=== PATIENT | female | born 1955 | race Caucasian/White ===

== ENCOUNTER 2018-03-13 15:41 | Observation (INO) | payer BC, OTHER ==
[~2018-03-13] VITALS: Ht 160 cm; Wt 76.7 kg
[~2018-03-13 15:41] MED LIST: AMLODIPINE BESYL5 MG PO; ASPIR 8181 MG PO; ATENOLOL-CHLOR1 EACH PO; ATENOLOL100 MG PO; CALCIUM PO; CIPRO500 MG PO; FISH OIL300 MG PO; MULTI-VITAMIN1 EACH PO; OMEPRAZOLE40 MG PO; PROGESTERONE100 MG PO; VITAMIN C100 MG PO; VITAMIN D400 UNI1 PO
[2018-03-13] MEDS ORDERED: MORPHINE SULFATE 2 MG/ML SYR IV STA (16:06)
[2018-03-13] MEDS ORDERED: ONDANSETRON HCL INJ 2 MG/ML VIAL IV STA (16:06)
[2018-03-13 16:23] LABS: BASOPHILS % 0.4 % (0.0-1.0); EOSINOPHILS % 0.7 % (0.0-6.0); HEMATOCRIT 40.3 % (34.2-44.1); LYMPHOCYTES # (AUTO) 0.3 (1.0-3.2); LYMPHOCYTES % 5.4 % (18.0-39.1); MEAN CORPUSCULAR HEMOGLOBIN 31.1 pg (28-32); MEAN CORPUSCULAR HGB CONC 34.7 g/dL (31-35); MEAN CORPUSCULAR VOLUME 89.6 fL (81-99); MONOCYTES % 0.9 % (4.4-11.3); NEUTROPHILS # (AUTO) 4.2 (2.1-6.9); NEUTROPHILS % 91.7 % (38.7-80.0); PLATELET COUNT 180 x10e3/uL (140-360); RED CELL DISTRIBUTION WIDTH 13.5 % (11.7-14.4)
[2018-03-13 16:25] LABS: BILIRUBIN,URINE NEGATIVE (NEGATIVE); CLARITY,URINE SL CLOUDY (CLEAR); COLOR,URINE YELLOW (YELLOW); KETONES,URINE NEGATIVE (NEGATIVE); LEUKOCYTE ESTERASE ,URINE NEGATIVE (NEGATIVE); NITRITE,URINE NEGATIVE (NEGATIVE); PROTEIN,URINE DIPSTICK NEGATIVE (NEGATIVE); URINE UROBILINOGEN 1 mg/dL (0.2 - 1)
[2018-03-13 16:35] LABS: ALANINE AMINOTRANSFERASE 225 IU/L (0-55); ALBUMIN 3.3 g/dL (3.5-5.0); ALBUMIN/GLOBULIN RATIO 0.9 (0.8-2.0); ALKALINE PHOSPHATASE 260 IU/L (40-150); AMYLASE 72 U/L (25-125); ANION GAP 14.2 mmol/L (8-16); BLOOD UREA NITROGEN 12 mg/dL (7-26); BUN/CREATININE RATIO 15 (6-25); CALCIUM 9.3 mg/dL (8.4-10.2); CARBON DIOXIDE 26 mmol/L (22-29); CHLORIDE 104 mmol/L (98-107); CREATININE, SERUM 0.79 mg/dL (0.57-1.11); EST GLOMERULAR FILTRATION RATE > 60 ML/MIN (60-); GLUCOSE 112 mg/dL (74-118); LIPASE 59 U/L (8-78); POTASSIUM 3.2 mmol/L (3.5-5.1); SODIUM 141 mmol/L (136-145)
[2018-03-13 16:36] LABS: EPITHELIAL CELLS,URINE FEW /LPF
--- NOTE | 2018-03-13 19:03 | Diagnostic Imaging Report ---
PROCEDURE: CT ABDOMEN AND PELVIS WITHOUT CONTRAST TECHNIQUE: The abdomen and pelvis were scanned utilizing a multidetector helical scanner from the diaphragm to the lesser trochanter after the oral administration of Redicat. Coronal and sagittal multiplanar reformations were obtained. COMPARISON: 06/21/2016 INDICATIONS: ABDOMINAL PAIN UPPER FINDINGS: ABSENCE OF INTRAVENOUS CONTRAST DECREASES SENSITIVITY FOR DETECTION OF FOCAL LESIONS AND VASCULAR PATHOLOGY. LOWER THORAX: Subsegmental atelectasis and scarlike opacities in the lung bases. HEPATOBILIARY: No focal hepatic lesions. There is pneumobilia, unchanged. The gallbladder is absent. Mild dilatation of the common bile duct, measuring up to 1.2 cm, unchanged. This is most likely due to post cholecystectomy reservoir effect. SPLEEN: No splenomegaly. PANCREAS: No focal masses or ductal dilatation. ADRENALS: No adrenal nodules. KIDNEYS/URETERS: No hydronephrosis, stones, or solid mass lesions. PELVIC ORGANS/BLADDER: A 1.4 cm hypodense structure in the lower uterine segment (series 2, image 35) is unchanged and may represent a nabothian cyst. The bladder is unremarkable. PERITONEUM / RETROPERITONEUM: No free air or fluid. Small, nonspecific calcifications in the right subhepatic space (series 2, image 24) are unchanged since at least 06/21/2016. LYMPH NODES: No lymphadenopathy. VESSELS: Moderate atherosclerotic calcification of the aorta and its branches. GI TRACT: No distention or wall thickening. A 2.6 cm duodenal diverticulum (series 2 image 48) is unchanged. Numerous sigmoid diverticula without evidence of acute diverticulitis. The appendix is normal. The stomach is mildly distended. BONES AND SOFT TISSUES: Multilevel degenerative changes of the lower lumbar spine. IMPRESSION: Status post cholecystectomy with mild biliary dilatation and pneumobilia, unchanged since at least 06/21/2016. Sigmoid diverticulosis without evidence of acute diverticulitis. Dictated by: Gen Barlow M.D. on 03/13/2018 at 19:08 Electronically approved by: Gen Barlow M.D. on 03/13/2018 at 19:08
[2018-03-13] MEDS ORDERED: HYDROMORPHONE 1MG/1ML INJ IV PRN (19:45)
[2018-03-13] MEDS ORDERED: ONDANSETRON HCL INJ 2 MG/ML VIAL IV PRN (19:45)
[2018-03-13 21:15] VITALS: BP 115/54
[2018-03-13] MEDS: D5.45%NS/KCL 20MEQ 1,000 ML IV SCH (22:41)
[2018-03-13 23:20] VITALS: BP 115/54
[2018-03-13 23:32] VITALS: BP 115/54
[2018-03-13] MEDS ORDERED: ESIDRIX25 MG PO (23:50)
[2018-03-13] MEDS ORDERED: VITAMIN D1000 UNI1 PO (23:50)
[2018-03-13] MEDS ORDERED: FISH OIL OMEGA1 EACH PO (23:50)
[2018-03-13] MEDS ORDERED: OYST-CAL-500500 MG PO (23:50)
[2018-03-13] MEDS ORDERED: LOSARTAN POTAS100 MG PO (23:50)
[2018-03-13] MEDS ORDERED: BYSTOLIC10 MG PO (23:50)
[2018-03-14] VITALS (9 sets, daily range): BP systolic 94–132; BP diastolic 50–63
[2018-03-14] MEDS ORDERED: CARAFATE1 GM/10 ML PO (01:12)
[2018-03-14] MEDS: PANTOPRAZOLE 40 MG 10ML VIAL IV SCH ×3 (02:42→20:28)
[2018-03-14 05:56] LABS: BASOPHILS % 0.3 % (0.0-1.0); EOSINOPHILS # (AUTO) 0.1 (0.0-0.4); EOSINOPHILS % 1.5 % (0.0-6.0); HEMATOCRIT 34.3 % (34.2-44.1); HEMOGLOBIN 11.8 g/dL (12.0-16.0); LYMPHOCYTES # (AUTO) 1.2 (1.0-3.2); LYMPHOCYTES % 13.3 % (18.0-39.1); MEAN CORPUSCULAR HGB CONC 34.4 g/dL (31-35); MONOCYTES % 11.1 % (4.4-11.3); NEUTROPHILS # (AUTO) 6.8 (2.1-6.9); NEUTROPHILS % 73.4 % (38.7-80.0); PLATELET COUNT 179 x10e3/uL (140-360); RED BLOOD COUNT 3.81 x10e6/uL (3.6-5.1); RED CELL DISTRIBUTION WIDTH 13.7 % (11.7-14.4)
[2018-03-14 06:16] LABS: ALANINE AMINOTRANSFERASE 211 IU/L (0-55); ALBUMIN 2.7 g/dL (3.5-5.0); ALBUMIN/GLOBULIN RATIO 0.9 (0.8-2.0); ALKALINE PHOSPHATASE 221 IU/L (40-150); ANION GAP 12.6 mmol/L (8-16); BLOOD UREA NITROGEN 8 mg/dL (7-26); BUN/CREATININE RATIO 11 (6-25); CALCIUM 8.4 mg/dL (8.4-10.2); CARBON DIOXIDE 26 mmol/L (22-29); CHLORIDE 106 mmol/L (98-107); CREATININE, SERUM 0.72 mg/dL (0.57-1.11); EST GLOMERULAR FILTRATION RATE > 60 ML/MIN (60-); GLUCOSE 109 mg/dL (74-118); POTASSIUM 3.6 mmol/L (3.5-5.1); SODIUM 141 mmol/L (136-145)
[2018-03-14] MEDS: SUCRALFATE 1 GM/10 ML SUSP PO SCH ×4 (08:02→20:28)
--- NOTE | 2018-03-14 08:12 | History and Physical ---
PRIMARY CARE PHYSICIAN: Dr. Osei NEON SIGN INSTALLER: Dr. Rodney CHIEF COMPLAINT: Abdominal pain. HISTORY OF PRESENT ILLNESS: This is a 62-year-old woman with a history of diverticulosis and cholelithiasis, status post cholecystectomy in 2007, and then recurrence of some findings of stones in June 2016, now developing epigastric pain. Her symptoms were ongoing for 4 days. She also had some chills. No nausea, vomiting or diarrhea. Initial studies showed transaminitis. She is now admitted for further evaluation and management. PAST MEDICAL HISTORY: Hypertension, diverticulosis, obstructive jaundice, cholangitis, choledocholithiasis, status post ERCP with common bile duct stent placement, status post cholecystectomy. PAST SURGICAL HISTORY: Tubal ligation, hernia repair, cholecystectomy, ERCP with common bile duct stent placement. ALLERGIES: PER ELECTRONIC MEDICAL RECORD. FAMILY HISTORY/SOCIAL HISTORY: Patient is . She has 2 children. Occasional alcohol. No illicits or cigarettes. MEDICATIONS: Per electronic medical record. REVIEW OF SYSTEMS: Denies any dizziness, chest pain, shortness of breath, fevers, chills, sweats, headache, vision changes. PHYSICAL EXAMINATION VITAL SIGNS: Reviewed. GENERAL: A tired-appearing woman resting in bed. HEENT: Anicteric. Pupils respond to light. No oral lesions. CARDIOVASCULAR: Normal S1 and S2. LUNGS: Moderate breath sounds. ABDOMEN: Soft and nondistended. She has mild tenderness in the epigastrium. Right upper quadrant is nontender. Negative Gómez's sign. EXTREMITIES: No edema or calf tenderness. NEUROLOGICAL: Alert and oriented times 3. Moving all extremities. SKIN: Dry. PSYCHIATRIC: Normal affect. LABS: Reviewed. MEDICATIONS: Reviewed. ASSESSMENT: This is a 62-year-old woman with: 1. Hypokalemia. 2. Acute transaminitis. 3. Diverticulosis. 4. Hypertension. PLAN 1. MRCP is pending. 2. Continue rehydration. 3. Resume and PPI. 4. Follow up GI recommendations. 5. SCD for DVT prophylaxis and Protonix. Job#: [id number] [place]
[2018-03-14] MEDS: NEBIVOLOL 10 MG TAB PO SCH (09:11)
[2018-03-14] MEDS: D5.45%NS/KCL 20MEQ 1,000 ML IV SCH ×2 (09:11→23:06)
[2018-03-14] MEDS: LOSARTAN POTASSIUM 100 MG TAB PO SCH (09:12)
--- NOTE | 2018-03-14 13:12 | Diagnostic Imaging Report ---
EXAM: MRI MRCP WO DATE: 03/14/2018 9:00 AM INDICATION: Abdominal pain. COMPARISON: CT dated 03/13/2018. MRCP dated 06/21/2016 TECHNIQUE: MRCP protocol performed using1.5 Mis. Sequences obtained include axial T2 FRFSE FS, coronal and axial T2 SSFSE, SSFSE coronal spins. FINDINGS: The gallbladder is surgically absent. The common bile left is distended up to 1.2 cm proximally with gradual distal tapering. There is also mild intrahepatic biliary dilatation. 3 partially obstructive filling defects visualized within distal common bile duct, measuring approximately 0.4 cm, 0.5 cm, and 0.5 cm from proximal to distal (series 11, images 7, 6, and 5). Within the limitations of the exam, the liver, spleen, pancreas, kidneys, and adrenal glands are unremarkable. No pancreatic ductal dilatation. No evidence of bowel obstruction. Colonic diverticulosis. No upper abdominal free fluid or lymphadenopathy. The soft tissues and bones are unremarkable. IMPRESSION: 1. Questionable subcentimeter filling defects within common bile duct, concerning for choledocholithiasis. 2. Status post cholecystectomy with mild biliary dilatation, which could be due to combination of reservoir effect and partially obstructive distal common bile duct stones. Signed by: Dr. Taj Phan MD on 03/14/2018 1:08 PM
[2018-03-15] VITALS (8 sets, daily range): BP systolic 122–172; BP diastolic 59–78
[2018-03-15] MEDS ORDERED: CITRATE OF MAGNESIA 300ML BOTTLE PO ONE (05:00)
[2018-03-15] MEDS: SUCRALFATE 1 GM/10 ML SUSP PO SCH ×4 (07:30→20:25)
[2018-03-15] MEDS: NEBIVOLOL 10 MG TAB PO SCH (09:00)
[2018-03-15] MEDS: LOSARTAN POTASSIUM 100 MG TAB PO SCH (09:00)
[2018-03-15] MEDS: PANTOPRAZOLE 40 MG 10ML VIAL IV SCH ×2 (09:27→20:25)
[2018-03-15] MEDS ORDERED: IOPAMIDOL 300MG/ML 50ML INFUS..BTL IV ONE (11:05)
[2018-03-15] MEDS ORDERED: INDOMETHACIN 50 MG SUPP.RECT RC ONE (11:06)
[2018-03-15] MEDS: D5.45%NS/KCL 20MEQ 1,000 ML IV SCH (11:33)
[2018-03-15] MEDS ORDERED: SODIUM CHLORIDE 0.9% 1000ML 1,000 ML ONE (12:07)
[2018-03-15] MEDS ORDERED: SODIUM CHLORIDE 0.9% 1000ML 1,000 ML IV SCH ×2 (12:30→13:15)
--- NOTE | 2018-03-15 12:39 | Operative Report ---
DATE OF PROCEDURE: March 15, 2018 REFERRING PHYSICIAN: Dr. Yoshi Osei. PROCEDURE PERFORMED: Endoscopic retrograde cholangiopancreatography with endoscopic retrograde sphincterotomy and balloon sweep with stone extraction. INDICATIONS FOR PROCEDURE: Choledocholithiasis on MRCP. MEDICATION: Patient was done under MAC. Please see anesthesiologist's note. PROCEDURE: With the patient in the prone position, the flexible fiberoptic side-viewing Olympus scope was then introduced into the oropharynx and advanced all the way to the 2nd portion of the duodenum. The ampulla was identified and appeared to be within normal limits. There was a periampullary diverticulum. The ampulla was then cannulated with ease, and then a guidewire was inserted. Cholangiogram was carried out with documentation of choledocholithiasis. An endoscopic retrograde sphincterotomy was then carried out to approximately 12 mm, and a balloon sweep times 2 was carried out with retrieval of debris and an approximately 1 cm stone. The scope was subsequently withdrawn. Patient tolerated the procedure well. IMPRESSION: 1. Ampulla within normal limits. 2. Small periampullary diverticulum. 3. Choledocholithiasis on cholangiogram. 4. Endoscopic retrograde sphincterotomy with balloon sweep with removal of debris and approximately 1 cm stone. PLAN: Patient tolerated the procedure well. Will initiate full-liquid diet. Job#: [id number] EV cc:YOSHI OSEI MD
--- NOTE | 2018-03-15 16:03 | Diagnostic Imaging Report ---
PROCEDURE:ERCP TO BE READ TECHNIQUE:Fluoroscopic assistance was provided for the purposes of ERCP. Multiple fluoroscopic images of the biliary tree were submitted. INDICATION:Right upper quadrant pain, suspect choledocholithiasis COMPARISON:Patients [facility], CT, CT ABDOMEN/PELVIS WO, 03/13/2018, 17:51. Patients [facility], DX, ERCP TO BE READ, 06/22/2016, 16:26. ERCP 06/22/2016 FINDINGS: Images demonstrate diffusely distended common bile duct and proximal intrahepatic ducts are previous exam. Surgical clips in the right upper quadrant are stable consistent with cholecystectomy. No beading or narrowing. Balloon sweep was performed with stone extraction. The pancreas duct was not opacified. No stent was placed. CONCLUSION: Chronically distended common bile duct and central intrahepatic ducts with removal of common bile duct stones. No evidence of stricture. Dictated by: Margarito De La Garza M.D. on 03/15/2018 at 16:08 Electronically approved by: Margarito De La Garza M.D. on 03/15/2018 at 16:08
[2018-03-15] MEDS ORDERED: PROPOFOL IV EMULSION 10 MG/ML 50 ML VIAL ONE (17:36)
[2018-03-15] MEDS ORDERED: GLUCAGON FOR INJ 1 MG VIAL ONE (17:36)
[2018-03-15] MEDS ORDERED: LIDOCAINE HCL 2% LOCAL INJ 5 ML SDV VIAL INJ ONE (17:36)
[2018-03-15] MEDS ORDERED: LABETALOL HCL 5 MG/ML 20ML VIAL ONE (17:36)
[2018-03-15] MEDS ORDERED: FENTANYL CITRATE/PF 100MCG/2 ML INJ ONE (18:28)
[2018-03-15] MEDS ORDERED: MIDAZOLAM HCL 2 MG/2 ML VIAL ONE (18:28)
[2018-03-16 00:28] VITALS: BP 131/62
[2018-03-16] MEDS: D5.45%NS/KCL 20MEQ 1,000 ML IV SCH (00:53)
[2018-03-16 05:53] VITALS: BP 145/67
[2018-03-16] MEDS: SUCRALFATE 1 GM/10 ML SUSP PO SCH (07:30)
[2018-03-16 08:07] LABS: BASOPHILS % 0.4 % (0.0-1.0); EOSINOPHILS # (AUTO) 0.1 (0.0-0.4); EOSINOPHILS % 2.2 % (0.0-6.0); HEMOGLOBIN 12.1 g/dL (12.0-16.0); LYMPHOCYTES # (AUTO) 1.1 (1.0-3.2); LYMPHOCYTES % 21.6 % (18.0-39.1); MEAN CORPUSCULAR HEMOGLOBIN 30.4 pg (28-32); MEAN CORPUSCULAR HGB CONC 33.6 g/dL (31-35); MEAN CORPUSCULAR VOLUME 90.5 fL (81-99); MONOCYTES # (AUTO) 0.5 (0.2-0.8); MONOCYTES % 9.3 % (4.4-11.3); NEUTROPHILS # (AUTO) 3.3 (2.1-6.9); NEUTROPHILS % 65.9 % (38.7-80.0); PLATELET COUNT 204 x10e3/uL (140-360); RED BLOOD COUNT 3.98 x10e6/uL (3.6-5.1); RED CELL DISTRIBUTION WIDTH 13.4 % (11.7-14.4)
[2018-03-16] MEDS ORDERED: PANTOPRAZOLE SO40 MG PO (08:25)
[2018-03-16] MEDS ORDERED: ZOFRAN ODT4 MG PO (08:25)
[2018-03-16 08:28] LABS: ANION GAP 9.6 mmol/L (8-16); BLOOD UREA NITROGEN < 5 mg/dL (7-26); CALCIUM 8.5 mg/dL (8.4-10.2); CARBON DIOXIDE 25 mmol/L (22-29); CHLORIDE 108 mmol/L (98-107); CREATININE, SERUM 0.67 mg/dL (0.57-1.11); EST GLOMERULAR FILTRATION RATE > 60 ML/MIN (60-); GLUCOSE 116 mg/dL (74-118); POTASSIUM 3.6 mmol/L (3.5-5.1); SODIUM 139 mmol/L (136-145)
[2018-03-16 08:29] LABS: BUN/CREATININE RATIO 7 (6-25)
[2018-03-16 08:48] VITALS: BP 174/74
[2018-03-16] MEDS: PANTOPRAZOLE 40 MG 10ML VIAL IV SCH (09:00)
[2018-03-16] MEDS: LOSARTAN POTASSIUM 100 MG TAB PO SCH (09:39)
[2018-03-16] MEDS: NEBIVOLOL 10 MG TAB PO SCH (10:19)
[2018-03-16] MEDS ORDERED: PANTOPRAZOLE SOD 40 MG TABEC PO SCH (21:00)
--- NOTE | 2018-03-21 18:39 | Progress Note ---
DATE: March 15, 2018 TIME: 8:00 a.m. SUBJECTIVE: Overnight, no events. REVIEW OF SYSTEMS: Denies any dizziness, chest pain. Denies any headache, blurred vision. OBJECTIVE: VITAL SIGNS: Have been reviewed. GENERAL: A tired-appearing woman, resting in bed. HEENT: Anicteric. CARDIOVASCULAR: Normal S1 and S2. No murmurs. ABDOMEN: Soft, nondistended. Has mild tenderness in the epigastrium. Right upper quadrant is nontender. EXTREMITIES: No edema. SKIN: Dry. PSYCHIATRIC: Normal affect. LABS: Reviewed. MEDICATIONS: Reviewed. ASSESSMENT: This is a 62-year-old woman with: 1. Hypokalemia. 2. Transaminitis. 3. Diverticulosis. 4. Hypertension. 5. Choledocholithiasis by magnetic resonance cholangiopancreatography. PLAN: 1. Obtain LFTs. 2. Follow up hepatitis panel. 3. Follow up GI recommendations. 4. Follow up labs. Job#: [id number] NAIN
--- NOTE | 2018-03-21 20:15 | Discharge Summary ---
PRINCIPAL DIAGNOSES 1. Choledocholithiasis. 2. Hypokalemia. 3. Acute transaminitis. 4. Diverticulosis. 5. Hypertension. SECONDARY DIAGNOSIS: Hypertension. CHIEF COMPLAINT: Abdominal pain. HISTORY OF PRESENT ILLNESS: This is a 62-year-old woman developing abdominal pain. Refer to the H and P for further details. HOSPITAL COURSE: The patient was found to have choledocholithiasis by MRCP. Had elevated LFTs. Hepatitis panel was obtained. GI was consulted. The patient was made n.p.o. and received IV fluids. Hepatitis panel remained negative. The patient improved with IV fluids and conservative management. The patient also underwent ERCP with removal of common bile duct stone. The patient did well. Subsequently, discharged home with plan to follow up. DISCHARGE MEDICATIONS: Per electronic medical record. FOLLOWUP 1. Primary doctor in 1 week. 2. GI services in 2 weeks. CONDITION ON DISCHARGE: Stable and improved. DISCHARGE LOCATION: Home. JOEL REIS MD Job#: [id number] [place]
== END 2018-03-16 11:56 | disposition home or self-care (01) ==
LOC: ER 15:41 → ERHOLD 19:52 → IMCU 21:14
PROVIDERS: ADMIT Internal Medicine; ATTEND Internal Medicine
DX: K80.50 Calculus of bile duct without cholangitis or cholecystitis without obstruction (principal); E87.6 Hypokalemia; K22.70 Barrett's esophagus without dysplasia; I10 Essential (primary) hypertension; Z90.49 Acquired absence of other specified parts of digestive tract; R74.0 Nonspecific elevation of levels of transaminase and lactic acid dehydrogenase [LDH]; K57.10 Diverticulosis of small intestine without perforation or abscess without bleeding; K21.9 Gastro-esophageal reflux disease without esophagitis
CPT/HCPCS: 36415 ×3; 43262; 43264; 74176; 74181; 74328; 80048; 80053 ×2; 81001; 82150; 83690; 85025 ×3; 93005; 99284; G0378 ×4; J1610; J2001; J2250; J2270; J2405; J3490; J7030; Q9967; 43260

== ENCOUNTER 2018-08-15 09:15 | Inpatient (IN) | payer BC, OTHER ==
[~2018-08-15] VITALS: Ht 160 cm; Wt 68.9 kg
[~2018-08-15 09:15] MED LIST changes: +BYSTOLIC10 MG PO; +CARAFATE1 GM/10 ML PO; +ESIDRIX25 MG PO; +FISH OIL OMEGA1 EACH PO; +LOSARTAN POTAS100 MG PO; +OYST-CAL-500500 MG PO; +PANTOPRAZOLE SO40 MG PO; +VITAMIN D1000 UNI1 PO; +ZOFRAN ODT4 MG PO
[2018-08-15] MEDS ORDERED: PANTOPRAZOLE 40 MG 10ML VIAL IV STA (09:51)
[2018-08-15] MEDS ORDERED: SODIUM CHLORIDE 0.9% 1000ML 1,000 ML IV STA (09:51)
[2018-08-15] MEDS ORDERED: MORPHINE SULFATE INJ 4 MG/ML INJ IV NR (09:51)
[2018-08-15] MEDS ORDERED: ONDANSETRON HCL INJ 2 MG/ML VIAL IV NR (10:00)
[2018-08-15 10:23] LABS: BASOPHILS % 0.3 % (0.0-1.0); EOSINOPHILS % 0.1 % (0.0-6.0); HEMATOCRIT 39.2 % (34.2-44.1); HEMOGLOBIN 13.3 g/dL (12.0-16.0); LYMPHOCYTES # (AUTO) 1.2 (1.0-3.2); LYMPHOCYTES % 8.3 % (18.0-39.1); MEAN CORPUSCULAR HEMOGLOBIN 29.9 pg (28-32); MEAN CORPUSCULAR HGB CONC 33.9 g/dL (31-35); MEAN CORPUSCULAR VOLUME 88.1 fL (81-99); MONOCYTES # (AUTO) 1.1 (0.2-0.8); MONOCYTES % 7.9 % (4.4-11.3); NEUTROPHILS # (AUTO) 11.6 (2.1-6.9); PLATELET COUNT 378 x10e3/uL (140-360); RED BLOOD COUNT 4.45 x10e6/uL (3.6-5.1); RED CELL DISTRIBUTION WIDTH 13.2 % (11.7-14.4)
[2018-08-15 10:41] LABS: ALANINE AMINOTRANSFERASE 14 IU/L (0-55); ALBUMIN 2.9 g/dL (3.5-5.0); ALBUMIN/GLOBULIN RATIO 0.6 (0.8-2.0); ALKALINE PHOSPHATASE 94 IU/L (40-150); AMYLASE 48 U/L (25-125); ANION GAP 15.3 mmol/L (8-16); BLOOD UREA NITROGEN 9 mg/dL (7-26); BUN/CREATININE RATIO 12 (6-25); CALCIUM 9.4 mg/dL (8.4-10.2); CARBON DIOXIDE 25 mmol/L (22-29); CHLORIDE 100 mmol/L (98-107); CREATININE, SERUM 0.78 mg/dL (0.57-1.11); EST GLOMERULAR FILTRATION RATE > 60 ML/MIN (60-); GLUCOSE 113 mg/dL (74-118); LIPASE 21 U/L (8-78); POTASSIUM 3.3 mmol/L (3.5-5.1); SODIUM 137 mmol/L (136-145)
[2018-08-15 11:05] LABS: CLARITY,URINE CLOUDY (CLEAR); COLOR,URINE YELLOW (YELLOW)
[2018-08-15 11:06] LABS: KETONES,URINE 1+ (NEGATIVE); LEUKOCYTE ESTERASE ,URINE NEGATIVE (NEGATIVE); NITRITE,URINE NEGATIVE (NEGATIVE); PROTEIN,URINE DIPSTICK 1+ (NEGATIVE)
[2018-08-15 11:07] LABS: BILIRUBIN,URINE NEGATIVE (NEGATIVE); URINE UROBILINOGEN 0.2 mg/dL (0.2 - 1)
[2018-08-15 11:19] LABS: EPITHELIAL CELLS,URINE MANY /LPF
[2018-08-15 11:20] LABS: WBC,URINE (MAN) 0-5 /HPF (0-5)
[2018-08-15 11:21] LABS: BACTERIA,URINE MODERATE /HPF; RBC,URINE 0-5 /HPF (0-5)
--- NOTE | 2018-08-15 12:00 | NUR ---
PATIENT LAYING IN BED WITH EYES CLOSED. SKIN WARM AND DRY. RESP EVEN AND UNLABORED. NO SIGNS OF ACUTE DISTRESS NOTED AT THIS TIME. FAMILY AT BEDSIDE.
[2018-08-15] MEDS ORDERED: D5.45%NS/KCL 20MEQ 1,000 ML IV SCH (12:50)
[2018-08-15] MEDS ORDERED: MORPHINE SULFATE 2 MG/ML SYR IV PRN (13:00)
[2018-08-15] MEDS: POTASSIUM CHLORIDE 20 MEQ TAB CR PO NR ×2 (13:25→13:31)
[2018-08-15] MEDS: PIPER-TAZ 3.375 GM 50 ML IV SCH ×2 (13:36→20:39)
--- NOTE | 2018-08-15 14:13 | Diagnostic Imaging Report ---
ADDENDUM #1 ADDENDUM: Dose modulation, iterative reconstruction, and/or weight based adjustment of the mA/kV was utilized to reduce the radiation dose to as low as reasonably achievable. Signed by: Dr. Clarice Mckeon MD on 08/15/2018 5:24 PM ORIGINAL REPORT EXAM: CT Abdomen and Pelvis WITHOUT contrast INDICATION: Abdominal pain, history of diverticulitis. COMPARISON: CT abdomen pelvis 06/21/2016. TECHNIQUE: Abdomen and pelvis were scanned utilizing a multidetector helical scanner from the lung base to the pubic symphysis without administration of IV contrast. Absence of intravenous contrast decreases sensitivity for detection of focal lesions and vascular pathology. Coronal and sagittal reformations were obtained. Routine protocol was performed. IV CONTRAST: None. ORAL CONTRAST: Water RADIATION DOSE: Total DLP: 691.7 mGy*cm COMPLICATIONS: None FINDINGS: LOWER THORAX: No consolidations LIVER: No evidence of mass BILIARY: Again noted is pneumobilia, increased from prior CT on 06/21/2016. Mild intrahepatic and CBD dilatation, likely secondary to reservoir effect status post cholecystectomy. SPLEEN: No masses PANCREAS: Limited evaluation in the absence of contrast. No masses ADRENALS: No nodules KIDNEYS: No nephroureterolithiasis or hydronephrosis. GI TRACT: There is extensive colonic diverticulosis with substantial sigmoid colonic thickening measuring up to 1.8 cm and perisigmoid colonic inflammatory changes with fat stranding and some free fluid in the pelvis. No drainable fluid collection. Normal appendix. No evidence of bowel obstruction. VESSELS: Moderate atherosclerotic changes without aneurysm. PERITONEUM/RETROPERITONEUM: No free air or fluid LYMPH NODES: No lymphadenopathy PELVIS: The bladder is unremarkable in appearance. There is free fluid surrounding the uterus adjacent to the sigmoid diverticulitis. BONES/SOFT TISSUES: No suspicious bone lesions. IMPRESSION: Acute sigmoid diverticulitis with extensive surrounding inflammatory changes. Some free fluid in the pelvis without evidence of drainable abscess. Given the substantial sigmoid colonic wall thickening, upon resolution of acute symptoms, colonoscopy is suggested to exclude underlying neoplasm. Nonspecific pneumobilia, increased from CT on 06/21/16. Please correlate with prior intervention or surgical procedure. Signed by: Dr. Clarice Mckeon MD on 08/15/2018 2:10 PM
[2018-08-15] MEDS: METRONIDAZOLE 500MG/NS 100ML 100 ML IV SCH ×2 (14:45→18:36)
[2018-08-15] MEDS: MORPHINE SULFATE INJ 4 MG/ML INJ IV PRN ×2 (14:57→18:36)
[2018-08-15] MEDS: ONDANSETRON HCL INJ 2 MG/ML VIAL IV PRN (14:59)
[2018-08-15] MEDS ORDERED: LABETALOL HCL 5 MG/ML 20ML VIAL IV SCH (16:15)
--- NOTE | 2018-08-15 16:35 | History and Physical ---
PRIMARY CARE PHYSICIAN: Dr. Osei. EXTERNAL AUDITOR: Dr. Rodney. CHIEF COMPLAINT: Abdominal pain and nausea. HISTORY OF PRESENT ILLNESS: This is a 63-year-old woman with a history of diverticulosis, now developing severe lower abdominal pain along the low abdominal border with nausea prompting a visit to the hospital. Here she was found to have acute sigmoid diverticulitis with extensive disease and was admitted for further evaluation and management. PAST MEDICAL HISTORY: Diverticulosis, hypertension, objective jaundice, cholangitis, choledocholithiasis status post ERCP with common bile duct stent placement status post cholecystectomy, hypokalemia, acute transaminitis. PAST SURGICAL HISTORY: Tubal ligation, hernia repair, cholecystectomy, ERCP with common bile duct stent placement. ALLERGIES: PER THE ELECTRONIC MEDICAL RECORDS. FAMILY HISTORY/SOCIAL HISTORY: Patient is . She has 2 children. Occasional alcohol, no cigarettes or illicits. MEDICATIONS: Per the electronic medical records. Medications reviewed. REVIEW OF SYSTEMS: Denies any fever, chills, sweats. Denies any headache, chest pain, leg pain, skin rash, confusion. LABS: Reviewed. ASSESSMENT: This is a 63-year-old woman. 1. Acute sigmoid diverticulitis. 2. Hypertension. 3. Abdominal pain. 4. Hypokalemia. 5. Overweight state, body mass index 29.9. PLAN 1. NPO. 2. IV Flagyl and Zosyn. 3. IV fluids. 4. PRN morphine. 5. SCDs for DVT prophylaxis and IV Pepcid. 6. Disposition. I have counseled patient on weight loss and a high-fiber diet once she is discharged. GI consultation. Follow up labs. Job#: [id number] EV
[2018-08-15 18:12] VITALS: BP 146/63
--- NOTE | 2018-08-15 18:15 | NUR ---
received pt lying in bed with eyes open and TV on, resp even and unlabored. AAOx3. spouse at bedside. oriented to room and use of call light, call light placed within reach and instructed to call for assistance. patient c/o pain 10/10 to lower abdomen upon initial assessment, administered PRN morphine per OCT.
[2018-08-15] MEDS: SODIUM CHLORIDE 0.9% 1000ML 1,000 ML IV SCH (18:36)
[2018-08-15] MEDS: FAMOTIDINE 20 MG/2 ML VIAL IV SCH (18:36)
[2018-08-15 18:45] VITALS: BP 146/63
[2018-08-15 18:48] VITALS: BP 146/63
--- NOTE | 2018-08-15 19:34 | NUR ---
walking rounds done with oncoming nurse. IV Zosyn has not been administered as patient was recently transferred to unit, passed this on in report to oncoming nurse.
[2018-08-15 20:00] VITALS: BP 128/58
[2018-08-15] MEDS ORDERED: ACETAMINOPHEN 325 MG TAB PO PRN (20:15)
--- NOTE | 2018-08-15 20:20 | NUR ---
RECEIVED PT IN BED AOX3 .RESPIRATIONS ARE EVEN AND UNLABORED .DENIES PAIN AT THIS TIME ,T 101.[address] REIS AND GOT THE ORDER TO BLOOD CULTURE X2 AND TYLENOL 650 MG Q 6HRS PRN .CALL LIGHT WITH IN REACH .FAMILY ERIK RTO THE BEDSIDE CONTINUE TO MONITOR N
[2018-08-15] MEDS ORDERED: LABETALOL HCL 5 MG/ML 20ML VIAL IV PRN (20:30)
[2018-08-15] MEDS: ACETAMINOPHEN 325 MG TAB PO PRN (20:30)
[2018-08-15] MEDS ORDERED: LABETALOL HCL 20 MG/4 ML SYRINGE IV PRN (20:30)
[2018-08-16] VITALS (9 sets, daily range): BP systolic 108–144; BP diastolic 53–71
[2018-08-16] MEDS: MORPHINE SULFATE INJ 4 MG/ML INJ IV PRN ×2 (03:40→15:44)
[2018-08-16] MEDS: ONDANSETRON HCL INJ 2 MG/ML VIAL IV PRN ×2 (03:40→19:31)
[2018-08-16 05:36] LABS: BASOPHILS % 0.2 % (0.0-1.0); EOSINOPHILS # (AUTO) 0.1 (0.0-0.4); EOSINOPHILS % 0.5 % (0.0-6.0); HEMATOCRIT 33.9 % (34.2-44.1); HEMOGLOBIN 11.3 g/dL (12.0-16.0); LYMPHOCYTES # (AUTO) 0.8 (1.0-3.2); LYMPHOCYTES % 6.2 % (18.0-39.1); MEAN CORPUSCULAR HEMOGLOBIN 29.6 pg (28-32); MEAN CORPUSCULAR HGB CONC 33.3 g/dL (31-35); MEAN CORPUSCULAR VOLUME 88.7 fL (81-99); MONOCYTES # (AUTO) 1.1 (0.2-0.8); MONOCYTES % 8.3 % (4.4-11.3); NEUTROPHILS # (AUTO) 11.5 (2.1-6.9); NEUTROPHILS % 84.3 % (38.7-80.0); PLATELET COUNT 288 x10e3/uL (140-360); RED BLOOD COUNT 3.82 x10e6/uL (3.6-5.1); RED CELL DISTRIBUTION WIDTH 13.4 % (11.7-14.4)
[2018-08-16] MEDS: SODIUM CHLORIDE 0.9% 1000ML 1,000 ML IV SCH (05:39)
[2018-08-16] MEDS: ACETAMINOPHEN 325 MG TAB PO PRN ×2 (05:39→15:56)
[2018-08-16] MEDS: METRONIDAZOLE 500MG/NS 100ML 100 ML IV SCH ×4 (05:56→17:40)
[2018-08-16 05:58] LABS: ALANINE AMINOTRANSFERASE 17 IU/L (0-55); ALBUMIN 2.2 g/dL (3.5-5.0); ALBUMIN/GLOBULIN RATIO 0.6 (0.8-2.0); ALKALINE PHOSPHATASE 91 IU/L (40-150); ANION GAP 11.4 mmol/L (8-16); BLOOD UREA NITROGEN 6 mg/dL (7-26); BUN/CREATININE RATIO 9 (6-25); CARBON DIOXIDE 23 mmol/L (22-29); CHLORIDE 103 mmol/L (98-107); CREATININE, SERUM 0.69 mg/dL (0.57-1.11); EST GLOMERULAR FILTRATION RATE > 60 ML/MIN (60-); GLUCOSE 105 mg/dL (74-118); POTASSIUM 3.4 mmol/L (3.5-5.1); SODIUM 134 mmol/L (136-145)
[2018-08-16] MEDS: PIPER-TAZ 3.375 GM 50 ML IV SCH ×5 (06:13→23:56)
--- NOTE | 2018-08-16 06:24 | NUR ---
DR ARMAS HAVE SEEN THE PT .PT HAD TEM GIVEN TYLENOL 650 .CONTINUE TO MONITOR .FAMILY AT THE BEDSIDE .CALL LIGHT WITH IN REACH
[2018-08-16] MEDS ORDERED: ASPIR 8181 MG PO (06:59)
--- NOTE | 2018-08-16 07:18 | NUR ---
REPORT GIVEN TO THE ONCOMING NURSE.
[2018-08-16] MEDS ORDERED: POTASSIUM CHLORIDE 20MEQ/100ML 100 ML IV STA (07:31)
--- NOTE | 2018-08-16 07:31 | NUR ---
IM: progress note O/N: no events REVIEW OF SYSTEMS: Denies any fever, chills, sweats. Denies any headache, chest pain, leg pain, skin rash, confusion. LABS: Reviewed. ASSESSMENT: This is a 63-year-old woman. 1. Acute sigmoid diverticulitis. 2. Hypertension. 3. Abdominal pain. 4. Hypokalemia. 5. Overweight state, body mass index 29.9. PLAN 1. NPO. 2. IV Flagyl and Zosyn. 3. IV fluids. 4. PRN morphine. 5. SCDs for DVT prophylaxis and IV Pepcid. 6. Disposition. I have counseled patient on weight loss and a high-fiber diet once she is discharged. GI consultation. Follow up labs. /3 hypokalemia- replace; starting diet per GI. Francois Rubio MD, PhD.
[2018-08-16] MEDS: FAMOTIDINE 20 MG/2 ML VIAL IV SCH ×2 (08:39→17:12)
--- NOTE | 2018-08-16 15:40 | NUR ---
rechecked temperature its 100.1 orally
[2018-08-16] MEDS: PANTOPRAZOLE SOD 40 MG TABEC PO SCH (16:30)
[2018-08-16] MEDS: SUCRALFATE 1 GM/10 ML SUSP PO SCH ×2 (16:30→21:30)
[2018-08-16] MEDS ORDERED: ASPIRIN 81 MG CHEW TAB PO PRN (16:30)
[2018-08-16] MEDS ORDERED: ONDANSETRON HCL 4 MG ORAL DISINTEGRATING TAB PO PRN (16:30)
--- NOTE | 2018-08-16 19:10 | NUR ---
Completed BS rounds with morning nurse. Pt alert to name. Sitting in recliner. Denies pain at this time. No acute distress noted. at bedside.
[2018-08-17] VITALS (8 sets, daily range): BP systolic 115–162; BP diastolic 58–72
[2018-08-17] MEDS: MORPHINE SULFATE INJ 4 MG/ML INJ IV PRN ×4 (00:35→17:21)
[2018-08-17] MEDS: ONDANSETRON HCL INJ 2 MG/ML VIAL IV PRN ×4 (00:35→17:22)
[2018-08-17] MEDS: METRONIDAZOLE 500MG/NS 100ML 100 ML IV SCH ×4 (00:57→17:21)
[2018-08-17 05:07] LABS: BASOPHILS % 0.3 % (0.0-1.0); EOSINOPHILS % 0.3 % (0.0-6.0); HEMATOCRIT 32.1 % (34.2-44.1); HEMOGLOBIN 10.8 g/dL (12.0-16.0); LYMPHOCYTES # (AUTO) 0.9 (1.0-3.2); MEAN CORPUSCULAR HEMOGLOBIN 29.6 pg (28-32); MEAN CORPUSCULAR HGB CONC 33.6 g/dL (31-35); MEAN CORPUSCULAR VOLUME 87.9 fL (81-99); MONOCYTES # (AUTO) 0.9 (0.2-0.8); NEUTROPHILS # (AUTO) 11.5 (2.1-6.9); NEUTROPHILS % 84.8 % (38.7-80.0); PLATELET COUNT 305 x10e3/uL (140-360); RED BLOOD COUNT 3.65 x10e6/uL (3.6-5.1)
[2018-08-17 05:43] LABS: ANION GAP 11.6 mmol/L (8-16); BLOOD UREA NITROGEN 7 mg/dL (7-26); BUN/CREATININE RATIO 11 (6-25); CALCIUM 8.1 mg/dL (8.4-10.2); CARBON DIOXIDE 23 mmol/L (22-29); CHLORIDE 106 mmol/L (98-107); CREATININE, SERUM 0.66 mg/dL (0.57-1.11); EST GLOMERULAR FILTRATION RATE > 60 ML/MIN (60-); GLUCOSE 99 mg/dL (74-118); POTASSIUM 3.6 mmol/L (3.5-5.1); SODIUM 137 mmol/L (136-145)
[2018-08-17] MEDS: PIPER-TAZ 3.375 GM 50 ML IV SCH ×3 (06:00→17:21)
--- NOTE | 2018-08-17 08:09 | NUR ---
ADDENDUM to Progress Note 08/16/18 PE: tired appearing anicteric ns1s2 mod bs soft; tender lower abdomen no e/t skin dry n. affect Francois Rubio MD, PhD.
--- NOTE | 2018-08-17 08:10 | NUR ---
IM: progress note O/N: no events REVIEW OF SYSTEMS: Denies any fever, chills, sweats. Denies any headache, chest pain, leg pain, skin rash, confusion. v/S: rev'd PE tired appeairng anicteric ns1s2 mod bs soft Tender lower abdomen skin dry no e/t extremities a&ox3; andrade n. mood LABS: Reviewed. ASSESSMENT: This is a 63-year-old woman. 1. Acute sigmoid diverticulitis. 2. Hypertension. 3. Abdominal pain. 4. Hypokalemia. 5. Overweight state, body mass index 29.9. PLAN 1. NPO. 2. IV Flagyl and Zosyn. 3. IV fluids. 4. PRN morphine. 5. SCDs for DVT prophylaxis and IV Pepcid. 6. Disposition. I have counseled patient on weight loss and a high-fiber diet once she is discharged. GI consultation. Follow up labs. 08/16 hypokalemia- replace; starting diet per GI. 08/17 improving; Francois Rubio MD, PhD.
--- NOTE | 2018-08-17 08:59 | NUR ---
LATE ENTRY: 06/16/2019 CASE MANAGEMENT INITIAL ASSESSMENT Outreach Analyst to bedside to discuss plan of care with patient/family. CM/SW role and care transitions discussed. Anticipated discharge plan discussed along with duration of care. CM/SW discussed patients right to make decisions in care. CM/SW work hours given. Patient lives: W IN HOME Admit/Transfer: ER W C/O LOWER ABD PAIN POA/Emergency contact: RICHARD / SPOUSE @ [phone] Current/Previous Home Health: NONE PCP/Follow-up Care: DR. 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 CM/SW left business card at the bedside with contact information. Name and number was also written on the patients whiteboard. Patient verbalized understanding of discussion. CM will follow-up with ongoing discharge and transition of care needs.
[2018-08-17] MEDS: PROGESTERONE PO SCH (09:00)
[2018-08-17] MEDS: MULTIVITAMINS/MINERALS TAB PO SCH (09:00)
[2018-08-17] MEDS: OYST-CAL-D 500MG TABLET PO SCH (09:00)
[2018-08-17] MEDS: NEBIVOLOL 10 MG TAB PO SCH (09:00)
[2018-08-17] MEDS: CHOLECALCIFEROL 1,000 UNIT TAB PO SCH (09:00)
[2018-08-17] MEDS: LOSARTAN POTASSIUM 100 MG TAB PO SCH (09:00)
[2018-08-17] MEDS: OMEGA 3 POLYUNSAT FATTY ACIDS 1000 MG SOFTGEL PO SCH ×2 (09:00→17:00)
[2018-08-17] MEDS: SODIUM CHLORIDE 0.9% 1000ML 1,000 ML IV SCH (09:26)
[2018-08-17] MEDS: PANTOPRAZOLE SOD 40 MG TABEC PO SCH ×2 (09:27→16:30)
[2018-08-17] MEDS: SUCRALFATE 1 GM/10 ML SUSP PO SCH ×4 (09:27→21:00)
[2018-08-17] MEDS: FAMOTIDINE 20 MG/2 ML VIAL IV SCH ×2 (09:27→17:21)
--- NOTE | 2018-08-17 09:30 | NUR ---
Pt received resting in bed. Alert and oriented x4 pt c/o nausea, and unable to tolerate oral meds. Emotional support given. Oriented to staff and surroundings. Encouraged to press call [facility] if help needed. Call [facility] within reach. Will monitor
--- NOTE | 2018-08-17 19:05 | NUR ---
Completed BS rounds with morning nurse. Pt alert to name. Sitting up in bed. Denies pain or nausea at this time. No acute distress noted.
[2018-08-18] VITALS (7 sets, daily range): BP systolic 137–172; BP diastolic 61–72
[2018-08-18] MEDS: ONDANSETRON HCL INJ 2 MG/ML VIAL IV PRN ×4 (00:31→21:48)
[2018-08-18] MEDS: METRONIDAZOLE 500MG/NS 100ML 100 ML IV SCH ×4 (00:31→17:22)
[2018-08-18] MEDS: MORPHINE SULFATE INJ 4 MG/ML INJ IV PRN ×4 (00:32→21:48)
[2018-08-18] MEDS: PIPER-TAZ 3.375 GM 50 ML IV SCH ×4 (01:00→17:22)
[2018-08-18] MEDS: PANTOPRAZOLE SOD 40 MG TABEC PO SCH ×2 (07:30→16:27)
[2018-08-18 07:35] LABS: BASOPHILS % 0.3 % (0.0-1.0); EOSINOPHILS # (AUTO) 0.1 (0.0-0.4); EOSINOPHILS % 0.6 % (0.0-6.0); HEMATOCRIT 31.6 % (34.2-44.1); HEMOGLOBIN 10.7 g/dL (12.0-16.0); LYMPHOCYTES # (AUTO) 0.9 (1.0-3.2); LYMPHOCYTES % 6.7 % (18.0-39.1); MEAN CORPUSCULAR HEMOGLOBIN 29.8 pg (28-32); MEAN CORPUSCULAR HGB CONC 33.9 g/dL (31-35); MONOCYTES # (AUTO) 1.2 (0.2-0.8); NEUTROPHILS # (AUTO) 10.6 (2.1-6.9); NEUTROPHILS % 82.4 % (38.7-80.0); PLATELET COUNT 310 x10e3/uL (140-360); RED BLOOD COUNT 3.59 x10e6/uL (3.6-5.1); RED CELL DISTRIBUTION WIDTH 13.2 % (11.7-14.4)
[2018-08-18 08:14] LABS: ANION GAP 12.3 mmol/L (8-16); BLOOD UREA NITROGEN 7 mg/dL (7-26); BUN/CREATININE RATIO 10 (6-25); CALCIUM 8.1 mg/dL (8.4-10.2); CARBON DIOXIDE 23 mmol/L (22-29); CHLORIDE 103 mmol/L (98-107); CREATININE, SERUM 0.69 mg/dL (0.57-1.11); EST GLOMERULAR FILTRATION RATE > 60 ML/MIN (60-); GLUCOSE 88 mg/dL (74-118); MAGNESIUM 1.8 MG/DL (1.3-2.1); POTASSIUM 3.3 mmol/L (3.5-5.1); SODIUM 135 mmol/L (136-145)
--- NOTE | 2018-08-18 08:48 | NUR ---
Pt received resting in bed. Pt able to tolerate breakfast today. Will advance lunch. All meds given as ordered. Will monitor
[2018-08-18] MEDS: PROGESTERONE PO SCH (08:52)
[2018-08-18] MEDS: NEBIVOLOL 10 MG TAB PO SCH (08:52)
[2018-08-18] MEDS: LOSARTAN POTASSIUM 100 MG TAB PO SCH (08:52)
[2018-08-18] MEDS: OYST-CAL-D 500MG TABLET PO SCH (08:57)
[2018-08-18] MEDS: FAMOTIDINE 20 MG/2 ML VIAL IV SCH ×2 (08:57→17:22)
[2018-08-18] MEDS: MULTIVITAMINS/MINERALS TAB PO SCH (08:57)
[2018-08-18] MEDS: CHOLECALCIFEROL 1,000 UNIT TAB PO SCH (08:57)
[2018-08-18] MEDS: OMEGA 3 POLYUNSAT FATTY ACIDS 1000 MG SOFTGEL PO SCH ×2 (08:57→16:28)
[2018-08-18] MEDS: SUCRALFATE 1 GM/10 ML SUSP PO SCH ×4 (08:57→20:44)
--- NOTE | 2018-08-18 10:58 | NUR ---
IM: progress note O/N: no events REVIEW OF SYSTEMS: Denies any fever, chills, sweats. Denies any headache, chest pain, leg pain, skin rash, confusion. v/S: rev'd PE tired appeairng anicteric ns1s2 mod bs soft Tender lower abdomen skin dry no e/t extremities a&ox3; andrade n. mood LABS: Reviewed. ASSESSMENT: This is a 63-year-old woman. 1. Acute sigmoid diverticulitis. 2. Hypertension. 3. Abdominal pain. 4. Hypokalemia. 5. Overweight state, body mass index 29.9. PLAN 1. NPO. 2. IV Flagyl and Zosyn. 3. IV fluids. 4. PRN morphine. 5. SCDs for DVT prophylaxis and IV Pepcid. 6. Disposition. I have counseled patient on weight loss and a high-fiber diet once she is discharged. GI consultation. Follow up labs. 08/16 hypokalemia- replace; starting diet per GI. 08/17 improving; 08/18 replace K; tolerating full liq diet. Francois Rubio MD, PhD.
[2018-08-18] MEDS ORDERED: POTASSIUM CHLORIDE 20 MEQ TAB CR PO ONE (11:30)
[2018-08-18] MEDS ORDERED: POTASSIUM CHLORIDE 10MEQ EA PO ONE (12:30)
[2018-08-18] MEDS: SODIUM CHLORIDE 0.9% 1000ML 1,000 ML IV SCH ×2 (12:37→23:55)
--- NOTE | 2018-08-18 18:35 | NUR ---
Pt resting comfortably in bed. Tolerated full liquid diet. Meds given as ordered. Will endorse to next shift
--- NOTE | 2018-08-18 19:41 | NUR ---
Received patient alert and verbal. No complaint of pain.
[2018-08-19] VITALS (8 sets, daily range): BP systolic 136–173; BP diastolic 64–77
[2018-08-19] MEDS: METRONIDAZOLE 500MG/NS 100ML 100 ML IV SCH ×5 (00:05→23:50)
[2018-08-19] MEDS: PIPER-TAZ 3.375 GM 50 ML IV SCH ×4 (00:54→16:51)
[2018-08-19] MEDS: MORPHINE SULFATE INJ 4 MG/ML INJ IV PRN ×3 (05:10→14:15)
[2018-08-19] MEDS: ONDANSETRON HCL INJ 2 MG/ML VIAL IV PRN ×3 (05:10→14:15)
[2018-08-19 05:38] LABS: BASOPHILS % 0.4 % (0.0-1.0); EOSINOPHILS # (AUTO) 0.1 (0.0-0.4); EOSINOPHILS % 0.6 % (0.0-6.0); HEMATOCRIT 32.3 % (34.2-44.1); HEMOGLOBIN 10.9 g/dL (12.0-16.0); LYMPHOCYTES % 8.8 % (18.0-39.1); MEAN CORPUSCULAR HEMOGLOBIN 29.6 pg (28-32); MEAN CORPUSCULAR HGB CONC 33.7 g/dL (31-35); MEAN CORPUSCULAR VOLUME 87.8 fL (81-99); MONOCYTES % 8.9 % (4.4-11.3); NEUTROPHILS % 80.7 % (38.7-80.0); PLATELET COUNT 317 x10e3/uL (140-360); RED BLOOD COUNT 3.68 x10e6/uL (3.6-5.1); RED CELL DISTRIBUTION WIDTH 13.3 % (11.7-14.4)
[2018-08-19 06:05] LABS: ANION GAP 12.6 mmol/L (8-16); BLOOD UREA NITROGEN 5 mg/dL (7-26); BUN/CREATININE RATIO 8 (6-25); CALCIUM 8.1 mg/dL (8.4-10.2); CARBON DIOXIDE 24 mmol/L (22-29); CHLORIDE 100 mmol/L (98-107); CREATININE, SERUM 0.66 mg/dL (0.57-1.11); EST GLOMERULAR FILTRATION RATE > 60 ML/MIN (60-); GLUCOSE 99 mg/dL (74-118); POTASSIUM 3.6 mmol/L (3.5-5.1); SODIUM 133 mmol/L (136-145)
--- NOTE | 2018-08-19 06:48 | NUR ---
Report given to oncoming nurse
[2018-08-19] MEDS: PANTOPRAZOLE SOD 40 MG TABEC PO SCH (07:30)
[2018-08-19] MEDS: OMEGA 3 POLYUNSAT FATTY ACIDS 1000 MG SOFTGEL PO SCH (08:04)
[2018-08-19] MEDS: PROGESTERONE PO SCH (08:04)
--- NOTE | 2018-08-19 08:08 | NUR ---
Pt received resting in bed. Alert and oriented x4. All meds given as ordered. Emotional support given. Will monitor
[2018-08-19] MEDS: NEBIVOLOL 10 MG TAB PO SCH (08:09)
[2018-08-19] MEDS: OYST-CAL-D 500MG TABLET PO SCH (08:09)
[2018-08-19] MEDS: LOSARTAN POTASSIUM 100 MG TAB PO SCH (08:09)
[2018-08-19] MEDS: CHOLECALCIFEROL 1,000 UNIT TAB PO SCH (08:09)
[2018-08-19] MEDS: FAMOTIDINE 20 MG/2 ML VIAL IV SCH ×2 (08:09→16:50)
[2018-08-19] MEDS: SUCRALFATE 1 GM/10 ML SUSP PO SCH ×4 (08:09→20:50)
[2018-08-19] MEDS: MULTIVITAMINS/MINERALS TAB PO SCH (08:09)
--- NOTE | 2018-08-19 08:18 | NUR ---
Pt received resting in bed with family at bedside. Right IJ TLC at bedside is patent. Alert and oriented x4. All meds given as ordered. Emotional support given. Will monitor Addendum: 08/19/18 at 1034 by Juvenal Caldwell RN Noted entered in ERROR
--- NOTE | 2018-08-19 09:56 | NUR ---
IM: progress note O/N: no events REVIEW OF SYSTEMS: Denies any fever, chills, sweats. Denies any headache, chest pain, leg pain, skin rash, confusion. v/S: rev'd PE tired appeairng anicteric ns1s2 mod bs soft Tender lower abdomen skin dry no e/t extremities a&ox3; andrade n. mood LABS: Reviewed. ASSESSMENT: This is a 63-year-old woman. 1. Acute sigmoid diverticulitis. 2. Hypertension. 3. Abdominal pain. 4. Hypokalemia. 5. Overweight state, body mass index 29.9. PLAN 1. NPO. 2. IV Flagyl and Zosyn. 3. IV fluids. 4. PRN morphine. 5. SCDs for DVT prophylaxis and IV Pepcid. 6. Disposition. I have counseled patient on weight loss and a high-fiber diet once she is discharged. GI consultation. Follow up labs. 08/16 hypokalemia- replace; starting diet per GI. 08/17 improving; 08/18 replace K; tolerating full liq diet. 08/22 control BP; on liq diet; some abdominal discomfort; Francois Rubio MD, PhD.
[2018-08-19] MEDS ORDERED: NEBIVOLOL 10 MG TAB PO ONE (10:30)
[2018-08-19] MEDS: SODIUM CHLORIDE 0.9% 1000ML 1,000 ML IV SCH (11:07)
--- NOTE | 2018-08-19 19:19 | NUR ---
Report received from day shift nurse. Patient is alert. No complaints at this time.
[2018-08-20] VITALS (9 sets, daily range): BP systolic 133–185; BP diastolic 67–81
[2018-08-20] MEDS: PIPER-TAZ 3.375 GM 50 ML IV SCH ×4 (01:02→17:27)
[2018-08-20] MEDS: ONDANSETRON HCL INJ 2 MG/ML VIAL IV PRN ×3 (04:08→17:04)
[2018-08-20] MEDS: MORPHINE SULFATE INJ 4 MG/ML INJ IV PRN ×4 (04:08→23:49)
[2018-08-20] MEDS: SODIUM CHLORIDE 0.9% 1000ML 1,000 ML IV SCH (04:38)
[2018-08-20] MEDS: METRONIDAZOLE 500MG/NS 100ML 100 ML IV SCH ×4 (05:10→23:27)
[2018-08-20 05:12] LABS: BASOPHILS % 0.3 % (0.0-1.0); EOSINOPHILS # (AUTO) 0.1 (0.0-0.4); EOSINOPHILS % 0.7 % (0.0-6.0); HEMATOCRIT 30.3 % (34.2-44.1); HEMOGLOBIN 10.2 g/dL (12.0-16.0); LYMPHOCYTES # (AUTO) 0.8 (1.0-3.2); LYMPHOCYTES % 7.4 % (18.0-39.1); MEAN CORPUSCULAR HEMOGLOBIN 29.1 pg (28-32); MEAN CORPUSCULAR HGB CONC 33.7 g/dL (31-35); MEAN CORPUSCULAR VOLUME 86.3 fL (81-99); MONOCYTES % 9.8 % (4.4-11.3); NEUTROPHILS # (AUTO) 8.2 (2.1-6.9); NEUTROPHILS % 81.1 % (38.7-80.0); PLATELET COUNT 298 x10e3/uL (140-360); RED BLOOD COUNT 3.51 x10e6/uL (3.6-5.1); RED CELL DISTRIBUTION WIDTH 13.4 % (11.7-14.4)
[2018-08-20 05:33] LABS: ANION GAP 9.9 mmol/L (8-16); BLOOD UREA NITROGEN < 5 mg/dL (7-26); CALCIUM 7.9 mg/dL (8.4-10.2); CARBON DIOXIDE 27 mmol/L (22-29); CHLORIDE 103 mmol/L (98-107); CREATININE, SERUM 0.61 mg/dL (0.57-1.11); EST GLOMERULAR FILTRATION RATE > 60 ML/MIN (60-); GLUCOSE 103 mg/dL (74-118); SODIUM 137 mmol/L (136-145)
[2018-08-20 05:42] LABS: BUN/CREATININE RATIO 8 (6-25)
[2018-08-20 05:43] LABS: POTASSIUM 2.9 mmol/L (3.5-5.1)
--- NOTE | 2018-08-20 05:59 | NUR ---
Blood Pressure rechecked and within normal 134/62 mmhg.
--- NOTE | 2018-08-20 06:24 | NUR ---
Dr Rubio notified of low Potassium level. Orders received.
[2018-08-20] MEDS ORDERED: POTASSIUM CHLORIDE 20 MEQ TAB CR PO ONE ×2 (06:45→21:00)
--- NOTE | 2018-08-20 07:27 | NUR ---
report given to oncoming nurse.
--- NOTE | 2018-08-20 07:30 | NUR ---
RECEIVED PATIENT SITTING UP IN BED. NO ACUTE DISTRESS NOTED. CALL LIGHT WITHIN REACH. BED IN THE LOWEST POSITION.
[2018-08-20] MEDS: NEBIVOLOL 10 MG TAB PO SCH (08:44)
[2018-08-20] MEDS: SUCRALFATE 1 GM/10 ML SUSP PO SCH ×4 (08:44→21:00)
[2018-08-20] MEDS: FAMOTIDINE 20 MG/2 ML VIAL IV SCH ×2 (08:44→16:53)
[2018-08-20] MEDS: OYST-CAL-D 500MG TABLET PO SCH (08:45)
[2018-08-20] MEDS: LOSARTAN POTASSIUM 100 MG TAB PO SCH ×2 (08:45→09:00)
[2018-08-20] MEDS: MULTIVITAMINS/MINERALS TAB PO SCH (08:45)
[2018-08-20] MEDS: CHOLECALCIFEROL 1,000 UNIT TAB PO SCH (08:45)
[2018-08-20] MEDS: PROGESTERONE PO SCH (08:45)
--- NOTE | 2018-08-20 09:39 | NUR ---
IM: progress note O/N: no events REVIEW OF SYSTEMS: Denies any fever, chills, sweats. Denies any headache, chest pain, leg pain, skin rash, confusion. v/S: rev'd PE tired appeairng anicteric ns1s2 mod bs soft Tender lower abdomen skin dry no e/t extremities a&ox3; andrade n. mood LABS: Reviewed. ASSESSMENT: This is a 63-year-old woman. 1. Acute sigmoid diverticulitis. 2. Hypertension. 3. Abdominal pain. 4. Hypokalemia. 5. Overweight state, body mass index 29.9. PLAN 1. NPO. 2. IV Flagyl and Zosyn. 3. IV fluids. 4. PRN morphine. 5. SCDs for DVT prophylaxis and IV Pepcid. 6. Disposition. I have counseled patient on weight loss and a high-fiber diet once she is discharged. GI consultation. Follow up labs. 08/16 hypokalemia- replace; starting diet per GI. 08/17 improving; 08/18 replace K; tolerating full liq diet. 08/19 control BP; on liq diet; some abdominal discomfort; 08/20 control BP; cont diet advancement; replace and recheck K; Francois Rubio MD, PhD.
[2018-08-20] MEDS: NIFEDIPINE CR 30 MG TAB PO SCH ×2 (09:45→21:00)
--- NOTE | 2018-08-20 13:50 | NUR ---
PATIENT HAS BEEN APPROVED TO BE TRANSFERRED TO [facility]. REPORT GIVEN TO RYAN PARNELL AT [facility]. Addendum: 08/20/18 at 1547 by MP MOREAU RN WRONG ENTRY.
[2018-08-20] MEDS ORDERED: POTASSIUM CHLORIDE 20 MEQ TAB CR PO STA (14:30)
--- NOTE | 2018-08-20 19:30 | NUR ---
REPORT GIVEN TO ONCOMING NURSE. PATIENT IS RESTING IN BED. NO ACUTE DISTRESS NOTED. PAIN AT A TOLERABLE LEVEL AT THIS TIME. CALL LIGHT WITHIN REACH. BED IN THE LOWEST POSITION.
--- NOTE | 2018-08-20 20:00 | NUR ---
INITIAL ASSESSMENT COMPLETE, CALL LIGHT IN REACH,FAMILY AT BEDSIDE, C/O PAIN TO ABD, IV INFUSING, NO DISTRESS NOTED, TOLD TO CALL FOR NEEDS
--- NOTE | 2018-08-20 22:28 | Diagnostic Imaging Report ---
EXAM: CT Abdomen and Pelvis WITHOUT contrast INDICATION: Diverticulitis. Abdominal pain. COMPARISON: CT abdomen pelvis dated 08/15/2018. TECHNIQUE: Abdomen and pelvis were scanned utilizing a multidetector helical scanner from the lung base to the pubic symphysis without administration of IV contrast. Absence of intravenous contrast decreases sensitivity for detection of focal lesions and vascular pathology. Coronal and sagittal reformations were obtained. Routine protocol was performed. IV CONTRAST: None. ORAL CONTRAST: Gastrografin water mixture RADIATION DOSE: Total DLP: 530.60 mGy*cm COMPLICATIONS: None FINDINGS: LOWER THORAX: Bibasilar subsegmental atelectasis. Bilateral trace volume pleural effusion. LIVER: No evidence of mass BILIARY: Mild pneumobilia again observed. Mild intrahepatic and CBD dilatation, likely secondary to reservoir effect status post cholecystectomy. SPLEEN: No masses. PANCREAS: No acute abnormality. No dilatation. ADRENALS: No nodules KIDNEYS: No nephroureterolithiasis or hydronephrosis. GI TRACT: Redemonstration of acute sigmoid diverticulitis, with marked luminal narrowing of the sigmoid colon as seen on axial images 61 series 2, associated with extensive phlegmonous changes and a small volume of free fluid without associated loculated fluid collection at this time. There is a small collection of air and oral contrast extending anteriorly from the sigmoid colon measuring 3 cm on image 67 series 2, consistent with a contained leak. There is also a focal collection of oral contrast extending from the inferior aspect of the inflamed sigmoid colon as seen on axial image 67 and 68 series 2. There appears to be an appendiceal stump. No evidence of bowel obstruction. VESSELS: Moderate atherosclerotic calcifications without aneurysmal dilatation. PERITONEUM/RETROPERITONEUM: Small volume of free fluid. Containing leakage abutting the sigmoid colon as detailed above. LYMPH NODES: No lymphadenopathy PELVIS: Free fluid within the pelvis. BONES/SOFT TISSUES: No suspicious bone lesions. Degenerative disc disease at L3-L4, L4-L5 and L5-S1. IMPRESSION: 1. Redemonstration of acute sigmoid diverticulitis with extensive phlegmonous changes, and a small volume of free fluid. 2 small focal collections of oral contrast and air adjacent to the inflamed sigmoid colon, consistent with focal areas of contained rupture/leakage as detailed above, without a loculated fluid collection suggestive of drainable abscess. No distant pneumoperitoneum. Signed by: Dr. Carolee Stiles M.D. on 08/20/2018 10:25 PM
[2018-08-21] VITALS (7 sets, daily range): BP systolic 122–174; BP diastolic 58–84
[2018-08-21] MEDS: PIPER-TAZ 3.375 GM 50 ML IV SCH ×4 (00:30→17:40)
[2018-08-21] MEDS: METRONIDAZOLE 500MG/NS 100ML 100 ML IV SCH ×3 (05:37→18:18)
[2018-08-21 05:55] LABS: ANION GAP 11.6 mmol/L (8-16); BLOOD UREA NITROGEN < 5 mg/dL (7-26); CALCIUM 8.2 mg/dL (8.4-10.2); CARBON DIOXIDE 27 mmol/L (22-29); CHLORIDE 103 mmol/L (98-107); CREATININE, SERUM 0.62 mg/dL (0.57-1.11); EST GLOMERULAR FILTRATION RATE > 60 ML/MIN (60-); GLUCOSE 92 mg/dL (74-118); POTASSIUM 3.6 mmol/L (3.5-5.1); SODIUM 138 mmol/L (136-145)
[2018-08-21 05:58] LABS: BUN/CREATININE RATIO 8 (6-25)
--- NOTE | 2018-08-21 06:22 | NUR ---
pt in bed, family at bedside, vs stable, call light in reach, no distress noted
--- NOTE | 2018-08-21 06:25 | NUR ---
IM: progress note O/N: no events REVIEW OF SYSTEMS: Denies any fever, chills, sweats. Denies any headache, chest pain, leg pain, skin rash, confusion. v/S: rev'd PE tired appeairng anicteric ns1s2 mod bs soft Tender lower abdomen skin dry no e/t extremities a&ox3; andrade n. mood LABS: Reviewed. ASSESSMENT: This is a 63-year-old woman. 1. Acute sigmoid diverticulitis. 2. Hypertension. 3. Abdominal pain. 4. Hypokalemia. 5. Overweight state, body mass index 29.9. PLAN 1. NPO. 2. IV Flagyl and Zosyn. 3. IV fluids. 4. PRN morphine. 5. SCDs for DVT prophylaxis and IV Pepcid. 6. Disposition. I have counseled patient on weight loss and a high-fiber diet once she is discharged. GI consultation. Follow up labs. 08/16 hypokalemia- replace; starting diet per GI. 08/17 improving; 08/18 replace K; tolerating full liq diet. 08/19 control BP; on liq diet; some abdominal discomfort; 08/20 control BP; cont diet advancement; replace and recheck K; 08/21 CT no abscess; possible colonic wall rupture; extensive disease; Francois Rubio MD, PhD.
--- NOTE | 2018-08-21 07:14 | NUR ---
RECEIVED PATIENT SITTING UP IN COUCH. NO S/S DISTRESS NOTED. DENIES PAIN OR DISCOMFORT. CALL LIGHT WITHIN REACH. BED IN THE LOWEST POSITION.
[2018-08-21] MEDS: SUCRALFATE 1 GM/10 ML SUSP PO SCH ×4 (08:27→21:00)
[2018-08-21] MEDS: FAMOTIDINE 20 MG/2 ML VIAL IV SCH ×2 (08:32→16:49)
[2018-08-21] MEDS: OYST-CAL-D 500MG TABLET PO SCH (08:32)
[2018-08-21] MEDS: MULTIVITAMINS/MINERALS TAB PO SCH (08:32)
[2018-08-21] MEDS: CHOLECALCIFEROL 1,000 UNIT TAB PO SCH (08:32)
[2018-08-21] MEDS: PROGESTERONE PO SCH (08:32)
[2018-08-21] MEDS: NEBIVOLOL 10 MG TAB PO SCH (08:33)
[2018-08-21] MEDS: LOSARTAN POTASSIUM 100 MG TAB PO SCH (08:33)
[2018-08-21] MEDS: NIFEDIPINE CR 30 MG TAB PO SCH ×2 (08:33→21:00)
[2018-08-21] MEDS: MORPHINE SULFATE INJ 4 MG/ML INJ IV PRN ×2 (09:54→18:40)
[2018-08-21] MEDS: ONDANSETRON HCL INJ 2 MG/ML VIAL IV PRN ×2 (09:54→18:40)
[2018-08-21] MEDS: SODIUM CHLORIDE 0.9% 1000ML 1,000 ML IV SCH (17:40)
--- NOTE | 2018-08-21 18:11 | NUR ---
Nutrition Intervention Note RD Recommendation(s) for Physician: -Advance to GI soft diet as medically appropriate -Consider Ensure Compact w each meal to promote protein-calorie intake -Consider probiotics to promote gut health Plan of Care: RD following, monitoring for tolerance and adequacy Nutrition reason for involvement: LOS, NPO/clear/full liquid day 6 RD Assessment 08/21 Chart reviewed. 63yo F, who is admitted for nausea and abdominal pain. Visited pt in the room. Pt reports tolerating full liquid diet. Pt still complains of some abdominal pain but denies any nausea or vomiting today. LBM 08/21, watery per pt. CT abdomen/pelvis showed acute sigmoid diverticulitis with extensive phlegmonous changes, and a small volume of free fluid. Pending surgeon consult. 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 Bedside scale showed ~155lb, which is consistent with her reported UBW. No physical sign of muscle and fat loss. Will continue to monitor and follow. Principal Problems/Diagnoses: 1. Acute sigmoid diverticulitis. 2. Hypertension. 3. Abdominal pain. 4. Hypokalemia. 5. Overweight state, body mass index 29.9. PMH: Diverticulosis, hypertension, objective jaundice, cholangitis, choledocholithiasis status post ERCP with common bile duct stent placement status post cholecystectomy, hypokalemia, acute transaminitis. GI: LBM 08/21, watery stool per pt Skin: intact Labs: (08/21) BUN <5 L, Ca 8.2 L Meds: IVF, carafate, pepcid, zofran, oscal D, MVi w/ minerals, vitamin D 3 Ht: 63in Wt: 164.56lb BMI: 29.2kg/m2 IBW: 115lb Malnutrition Evaluation (08/21/2018) The patient does not meet criteria for a specified degree of malnutrition at this time. Will re-evaluate at follow-up as appropriate. Energy intake: <75% of estimated energy requirements for >7 days Weight loss: None Fat loss: none Muscle loss: none Supporting Evidence: Fluid accumulation: unable to evaluate Functional Status: no changes Nutrition Prescription (Diet Order): full liquid diet Diet Adequacy: Not meeting calorie needs, Not meeting protein needs Diet Education Needs Assessment: Diet education not indicated, patient on temporary/transition diet. Nutrition Care Level: low Nutrition Diagnosis: Inadequate oral intake related to current medical status as evidenced by full liquid diet on day 6. Goal: Patient will meet 75-100% of estimated needs by follow up Progress: N/A Interventions: Texture-modified diet, Commercial beverage Monitoring/Evaluation: Total energy intake, Total protein intake, Modified diet, Liquid supplement, Weight change Signed: Elizabeth Barry MS, RD, LD
--- NOTE | 2018-08-21 19:33 | NUR ---
REPORT GIVEN TO ONCOMING NURSE. PATIENT IS RESTING IN COUCH. NO S/S OF DISTRESS NOTED. FAMILY AT BEDSIDE. CALL LIGHT WITHIN REACH.
--- NOTE | 2018-08-21 22:34 | Consultation ---
DATE OF CONSULTATION: August 21, 2018 CHIEF COMPLAINT: Abdominal pain. HISTORY OF PRESENT ILLNESS: The patient is a 63-year-old female admitted a week ago with severe lower abdominal pain associated with diverticulitis of the sigmoid colon. The patient has had similar infection approximately 6 years ago. The patient was having loose bowel movements, tolerating liquid diet, but the pain has persisted. Repeat CT scan today shows small amount of extravasations from the sigmoid diverticulitis consistent with localized perforation. PAST MEDICAL HISTORY: As mentioned, positive for hypertension, history of cholangitis status post bile duct exploration and cholecystectomy. OTHER SURGICAL HISTORY: Includes hernia repair. SOCIAL: She does not smoke or abuse alcohol. REVIEW OF SYSTEMS: No chest pain, no shortness of breath or cough. ALLERGIES: SHE HAS ALLERGIC REACTION TO IODINE AND CODEINE. PHYSICAL EXAMINATION VITAL SIGNS: Stable. She is afebrile. Patient is awake, alert, in moderate discomfort. HEENT: Sclerae anicteric. NECK: Supple. LUNGS: Clear. HEART: Regular rate and rhythm. ABDOMEN: Moderately distended with guarding in the lower abdomen in the suprapubic area with mild rebound. EXTREMITIES: Without cyanosis or edema. LABS: White cell count is 10, hemoglobin of 10. Creatinine is 0.6. CT of the abdomen reveals sigmoid diverticulitis with small collection of air and oral contrast adjacent to the colon consistent with focal perforation. ASSESSMENT: Acute sigmoid diverticular perforations with localized evolving abscess formation. PLAN: Continue current antibiotics and clear liquid diet as tolerated. As there is no drainable abscess on last CT, we will continue antibiotics. If the acute infectious process worsens or does not improve, patient may benefit from sigmoid resection with possible colostomy. Thank you for the consultation. Job#: [id number] CF
[2018-08-22] VITALS (7 sets, daily range): BP systolic 123–143; BP diastolic 59–68
[2018-08-22] MEDS: ONDANSETRON HCL INJ 2 MG/ML VIAL IV PRN
[2018-08-22] MEDS: MORPHINE SULFATE INJ 4 MG/ML INJ IV PRN
[2018-08-22] MEDS: METRONIDAZOLE 500MG/NS 100ML 100 ML IV SCH ×3 (00:35→12:00)
[2018-08-22 05:20] LABS: BASOPHILS % 0.4 % (0.0-1.0); EOSINOPHILS # (AUTO) 0.2 (0.0-0.4); EOSINOPHILS % 3.2 % (0.0-6.0); HEMATOCRIT 30.9 % (34.2-44.1); HEMOGLOBIN 10.4 g/dL (12.0-16.0); MEAN CORPUSCULAR HEMOGLOBIN 29.2 pg (28-32); MEAN CORPUSCULAR HGB CONC 33.7 g/dL (31-35); MEAN CORPUSCULAR VOLUME 86.8 fL (81-99); MONOCYTES # (AUTO) 0.9 (0.2-0.8); MONOCYTES % 12.8 % (4.4-11.3); NEUTROPHILS % 68.6 % (38.7-80.0); PLATELET COUNT 317 x10e3/uL (140-360); RED BLOOD COUNT 3.56 x10e6/uL (3.6-5.1); RED CELL DISTRIBUTION WIDTH 13.8 % (11.7-14.4)
[2018-08-22 05:45] LABS: ALANINE AMINOTRANSFERASE 8 IU/L (0-55); ALBUMIN/GLOBULIN RATIO 0.6 (0.8-2.0); ALKALINE PHOSPHATASE 54 IU/L (40-150); ANION GAP 11.2 mmol/L (8-16); BLOOD UREA NITROGEN < 5 mg/dL (7-26); CALCIUM 8.1 mg/dL (8.4-10.2); CARBON DIOXIDE 28 mmol/L (22-29); CHLORIDE 101 mmol/L (98-107); CREATININE, SERUM 0.62 mg/dL (0.57-1.11); EST GLOMERULAR FILTRATION RATE > 60 ML/MIN (60-); GLUCOSE 93 mg/dL (74-118); POTASSIUM 3.2 mmol/L (3.5-5.1); SODIUM 137 mmol/L (136-145)
[2018-08-22] MEDS: PIPER-TAZ 3.375 GM 50 ML IV SCH ×3 (05:45→12:00)
[2018-08-22 05:51] LABS: BUN/CREATININE RATIO 8 (6-25)
--- NOTE | 2018-08-22 06:28 | NUR ---
IM: progress note O/N: no events REVIEW OF SYSTEMS: Denies any fever, chills, sweats. Denies any headache, chest pain, leg pain, skin rash, confusion. v/S: rev'd PE tired appeairng anicteric ns1s2 mod bs soft Tender lower abdomen skin dry no e/t extremities a&ox3; andrade n. mood LABS: Reviewed. ASSESSMENT: This is a 63-year-old woman. 1. Acute sigmoid diverticulitis. 2. Hypertension. 3. Abdominal pain. 4. Hypokalemia. 5. Overweight state, body mass index 29.9. PLAN 1. NPO. 2. IV Flagyl and Zosyn. 3. IV fluids. 4. PRN morphine. 5. SCDs for DVT prophylaxis and IV Pepcid. 6. Disposition. I have counseled patient on weight loss and a high-fiber diet once she is discharged. GI consultation. Follow up labs. 08/16 hypokalemia- replace; starting diet per GI. 08/17 improving; 08/18 replace K; tolerating full liq diet. 08/19 control BP; on liq diet; some abdominal discomfort; 08/20 control BP; cont diet advancement; replace and recheck K; 08/21 CT no abscess; possible colonic wall rupture; extensive disease; 08/22 leukocytosis resolved; replace K; cont conservative care; await clinical improvement; Francois Rubio MD, PhD.
[2018-08-22] MEDS ORDERED: POTASSIUM CHLORIDE 20MEQ/100ML 100 ML IV ONE (06:45)
[2018-08-22] MEDS: PROGESTERONE PO SCH (09:00)
[2018-08-22] MEDS: SUCRALFATE 1 GM/10 ML SUSP PO SCH ×4 (09:08→21:11)
[2018-08-22] MEDS: FAMOTIDINE 20 MG/2 ML VIAL IV SCH ×2 (09:08→18:03)
[2018-08-22] MEDS: NEBIVOLOL 10 MG TAB PO SCH (09:09)
[2018-08-22] MEDS: LOSARTAN POTASSIUM 100 MG TAB PO SCH (09:09)
[2018-08-22] MEDS: NIFEDIPINE CR 30 MG TAB PO SCH ×2 (09:10→21:11)
[2018-08-22] MEDS: CHOLECALCIFEROL 1,000 UNIT TAB PO SCH (09:10)
[2018-08-22] MEDS: MULTIVITAMINS/MINERALS TAB PO SCH (09:10)
[2018-08-22] MEDS: OYST-CAL-D 500MG TABLET PO SCH (09:10)
[2018-08-22] MEDS: SODIUM CHLORIDE 0.9% 1000ML 1,000 ML IV SCH (10:28)
--- NOTE | 2018-08-22 13:00 | NUR ---
Called in CT scan results to Dr. Forrest and received no new orders.
--- NOTE | 2018-08-22 19:05 | NUR ---
Completed bedside rounds with morning nurse. Pt alert,going to bathroom. Steady gait. Denies pain at this time. No acute distress noted. Family at bedside.
[2018-08-23] VITALS (7 sets, daily range): BP systolic 133–149; BP diastolic 63–82
[2018-08-23] MEDS: MULTIVITAMINS/MINERALS TAB PO SCH (08:00)
[2018-08-23] MEDS: CHOLECALCIFEROL 1,000 UNIT TAB PO SCH (08:00)
[2018-08-23] MEDS: NIFEDIPINE CR 30 MG TAB PO SCH ×2 (08:00→21:45)
[2018-08-23] MEDS: NEBIVOLOL 10 MG TAB PO SCH (08:00)
[2018-08-23] MEDS: OYST-CAL-D 500MG TABLET PO SCH (08:00)
[2018-08-23] MEDS: SUCRALFATE 1 GM/10 ML SUSP PO SCH ×4 (08:00→21:45)
[2018-08-23] MEDS: FAMOTIDINE 20 MG/2 ML VIAL IV SCH ×3 (08:00→17:28)
[2018-08-23] MEDS: PROGESTERONE PO SCH (09:00)
[2018-08-23] MEDS: LOSARTAN POTASSIUM 100 MG TAB PO SCH (13:34)
--- NOTE | 2018-08-23 19:15 | NUR ---
Completed bedside rounds with morning nurse. Pt alert and orient sitting in bed. Denies pain at this time. No acute distress noted. Call crawford within reach.
--- NOTE | 2018-08-23 19:45 | NUR ---
Left hand IV swollen and nonpatent. D/C IV 20g left hand, pt tolerated well.
--- NOTE | 2018-08-23 19:47 | NUR ---
IM: progress note O/N: no events REVIEW OF SYSTEMS: Denies any fever, chills, sweats. Denies any headache, chest pain, leg pain, skin rash, confusion. v/S: rev'd PE tired appeairng anicteric ns1s2 mod bs soft Tender lower abdomen skin dry no e/t extremities a&ox3; andrade n. mood LABS: Reviewed. ASSESSMENT: This is a 63-year-old woman. 1. Acute sigmoid diverticulitis. 2. Hypertension. 3. Abdominal pain. 4. Hypokalemia. 5. Overweight state, body mass index 29.9. PLAN 1. NPO. 2. IV Flagyl and Zosyn. 3. IV fluids. 4. PRN morphine. 5. SCDs for DVT prophylaxis and IV Pepcid. 6. Disposition. I have counseled patient on weight loss and a high-fiber diet once she is discharged. GI consultation. Follow up labs. 08/16 hypokalemia- replace; starting diet per GI. 08/17 improving; 08/18 replace K; tolerating full liq diet. 08/19 control BP; on liq diet; some abdominal discomfort; 08/20 control BP; cont diet advancement; replace and recheck K; 08/21 CT no abscess; possible colonic wall rupture; extensive disease; 08/22 leukocytosis resolved; replace K; cont conservative care; await clinical improvement; 08/23 tolerating diet; check labs in am. wants to go home soon. Francois Rubio MD, PhD.
--- NOTE | 2018-08-23 20:00 | NUR ---
Spoke with Dr. Steven regarding medications. New orders Abx: Flagyl 500mg PO Q 8 hrs and change Protonix 20 mg PO Q 12 hrs.
[2018-08-23] MEDS: METRONIDAZOLE 500 MG TAB PO SCH (21:45)
[2018-08-24] VITALS: BP 150/83
[2018-08-24 04:00] VITALS: BP 130/70
[2018-08-24 05:27] LABS: BASOPHILS % 0.6 % (0.0-1.0); EOSINOPHILS # (AUTO) 0.2 (0.0-0.4); EOSINOPHILS % 3.2 % (0.0-6.0); HEMATOCRIT 34.7 % (34.2-44.1); HEMOGLOBIN 11.8 g/dL (12.0-16.0); LYMPHOCYTES # (AUTO) 1.6 (1.0-3.2); LYMPHOCYTES % 22.1 % (18.0-39.1); MEAN CORPUSCULAR HEMOGLOBIN 29.8 pg (28-32); MEAN CORPUSCULAR VOLUME 87.6 fL (81-99); MONOCYTES # (AUTO) 0.9 (0.2-0.8); MONOCYTES % 11.8 % (4.4-11.3); NEUTROPHILS # (AUTO) 4.4 (2.1-6.9); NEUTROPHILS % 61.3 % (38.7-80.0); PLATELET COUNT 364 x10e3/uL (140-360); RED BLOOD COUNT 3.96 x10e6/uL (3.6-5.1); RED CELL DISTRIBUTION WIDTH 13.9 % (11.7-14.4)
[2018-08-24 05:48] LABS: ANION GAP 12.4 mmol/L (8-16); BLOOD UREA NITROGEN 6 mg/dL (7-26); BUN/CREATININE RATIO 9 (6-25); CALCIUM 8.4 mg/dL (8.4-10.2); CARBON DIOXIDE 27 mmol/L (22-29); CHLORIDE 106 mmol/L (98-107); CREATININE, SERUM 0.67 mg/dL (0.57-1.11); EST GLOMERULAR FILTRATION RATE > 60 ML/MIN (60-); GLUCOSE 90 mg/dL (74-118); POTASSIUM 3.4 mmol/L (3.5-5.1); SODIUM 142 mmol/L (136-145)
[2018-08-24] MEDS ORDERED: FLAGYL500 MG PO (06:44)
[2018-08-24] MEDS ORDERED: NIFEDIPINE ER30 M1 PO (06:44)
[2018-08-24] MEDS ORDERED: MIRALAX17 GM PO (06:44)
[2018-08-24] MEDS ORDERED: BYSTOLIC10 MG PO (06:44)
[2018-08-24] MEDS ORDERED: ZOFRAN4 MG PO (06:44)
--- NOTE | 2018-08-24 06:47 | NUR ---
Discharge Summary Principal Dx: ASSESSMENT: This is a 63-year-old woman. 1. Acute sigmoid diverticulitis. 2. Hypertension. 3. Abdominal pain. 4. Hypokalemia. 5. Overweight state, body mass index 29.9. Secondary dx: 1.HTN cc and HPI; refer to H&P Hospital course: ASSESSMENT: This is a 63-year-old woman. 1. Acute sigmoid diverticulitis. 2. Hypertension. 3. Abdominal pain. 4. Hypokalemia. 5. Overweight state, body mass index 29.9. PLAN 1. NPO. 2. IV Flagyl and Zosyn. 3. IV fluids. 4. PRN morphine. 5. SCDs for DVT prophylaxis and IV Pepcid. 6. Disposition. I have counseled patient on weight loss and a high-fiber diet once she is discharged. GI consultation. Follow up labs. 08/16 hypokalemia- replace; starting diet per GI. 08/17 improving; 08/18 replace K; tolerating full liq diet. 08/19 control BP; on liq diet; some abdominal discomfort; 08/20 control BP; cont diet advancement; replace and recheck K; 08/21 CT no abscess; possible colonic wall rupture; extensive disease; 08/22 leukocytosis resolved; replace K; cont conservative care; await clinical improvement; 08/23 tolerating diet; check labs in am. wants to go home soon. d/c home d/c condition: stable f/u pcp and and [facility] in 1-2 weeks Plan for colonoscopy in 6-8 weeks d/c meds; see MAR d/c time>35mins. Francois Rubio MD, PhD.
[2018-08-24 06:57] LABS: ANISOCYTOSIS SLIGHT; EOSINOPHILS % (MANUAL) 4 % (0-7); LYMPHOCYTES % (MANUAL) 16 % (19-48); MONOCYTES % (MANUAL) 11 % (3.4-9.0); MYELOCYTES % (MANUAL) 1 % (0-0); NEUTROPHILS % (MANUAL) 64 % (40-74); PLATELET ESTIMATE ADEQUATE; PLATELET MORPHOLOGY COMMENT NORMAL; RBC MORPHOLOGY COMMENT NORMAL
[2018-08-24 07:25] VITALS: BP 134/60
--- NOTE | 2018-08-24 07:25 | NUR ---
PATIENT OUT OF BED TO CHAIR TALKING ON THE PHONE, DENIED PAIN. CALL LIGHT AT REACH.
[2018-08-24] MEDS ORDERED: POTASSIUM CHLORIDE 20 MEQ TAB CR PO NR (07:30)
[2018-08-24] MEDS: METRONIDAZOLE 500 MG TAB PO SCH (07:32)
[2018-08-24 07:39] VITALS: BP 134/60
[2018-08-24] MEDS: SUCRALFATE 1 GM/10 ML SUSP PO SCH (08:00)
[2018-08-24] MEDS: PROGESTERONE PO SCH (09:00)
[2018-08-24] MEDS ORDERED: FAMOTIDINE 20 MG TAB PO SCH (09:00)
[2018-08-24] MEDS: OYST-CAL-D 500MG TABLET PO SCH (09:26)
[2018-08-24] MEDS: CHOLECALCIFEROL 1,000 UNIT TAB PO SCH (09:26)
[2018-08-24] MEDS: LOSARTAN POTASSIUM 100 MG TAB PO SCH (09:26)
[2018-08-24] MEDS: NIFEDIPINE CR 30 MG TAB PO SCH (09:26)
[2018-08-24] MEDS: NEBIVOLOL 10 MG TAB PO SCH (09:26)
[2018-08-24] MEDS: MULTIVITAMINS/MINERALS TAB PO SCH (09:26)
--- NOTE | 2018-08-24 10:50 | NUR ---
PATIENT DISCHARGED HOME. DISCHARGE INSTRUCTIONS, PRESCRIPTIONS, AND FOLLOW UP GIVEN TO PATIENT, SHE VERBALIZED UNDERSTANDING. ALL PERSONAL ITEMS TAKEN WITH PATIENT. REFUSED WHEEL CHAIR, BUT WAS ACCOMPANY TO THE FRONT LOBBY BY HOSPITAL STAFF IN STABLE CONDITION.
== END 2018-08-24 10:44 | disposition home or self-care (01) | DRG 392 ==
LOC: ER 09:15 → ERHOLD 14:29 → MED/SURG3 17:41
PROVIDERS: ADMIT Internal Medicine; ATTEND Internal Medicine
DX: K57.20 Diverticulitis of large intestine with perforation and abscess without bleeding (principal); I10 Essential (primary) hypertension; E87.6 Hypokalemia; E66.3 Overweight; Z68.29 Body mass index [BMI] 29.0-29.9, adult; R10.9 Unspecified abdominal pain
CPT/HCPCS: 36415; 74176; 80048; 80053; 81001; 82150; 83605; 83690; 83735; 84132; 85025; 87040; 87086; 96361; 99284; J2270; J2405; J2543; J3480; J7030

== ENCOUNTER 2018-09-17 07:14 | Inpatient (IN) | payer BC, OTHER ==
[2018-09-14 08:37] LABS: BASOPHILS % 0.7 % (0.0-1.0); EOSINOPHILS # (AUTO) 0.2 (0.0-0.4); EOSINOPHILS % 3.5 % (0.0-6.0); HEMATOCRIT 39.8 % (34.2-44.1); HEMOGLOBIN 13.2 g/dL (12.0-16.0); LYMPHOCYTES # (AUTO) 1.3 (1.0-3.2); LYMPHOCYTES % 29.6 % (18.0-39.1); MEAN CORPUSCULAR HEMOGLOBIN 29.2 pg (28-32); MEAN CORPUSCULAR HGB CONC 33.2 g/dL (31-35); MEAN CORPUSCULAR VOLUME 88.1 fL (81-99); MONOCYTES # (AUTO) 0.5 (0.2-0.8); MONOCYTES % 10.6 % (4.4-11.3); NEUTROPHILS # (AUTO) 2.4 (2.1-6.9); NEUTROPHILS % 55.4 % (38.7-80.0); PLATELET COUNT 234 x10e3/uL (140-360); RED BLOOD COUNT 4.52 x10e6/uL (3.6-5.1); RED CELL DISTRIBUTION WIDTH 14.9 % (11.7-14.4)
[~2018-09-17] VITALS: Ht 160 cm; Wt 68.9 kg
[~2018-09-17 07:14] MED LIST changes: +ESTRADIOL1 MG PO; +FLAGYL500 MG PO; +MIRALAX17 GM PO; +NIFEDIPINE ER30 M1 PO; +POTASSIUM CHLO20 ME1 PO; +PROGESTERONE200 MG PO; +ZOFRAN4 MG PO
[2018-09-17] MEDS ORDERED: CEFOXITIN SOD 1 GM VIAL ONE (07:45)
[2018-09-17] MEDS ORDERED: BUPIVACAINE 0.5%/EPI 30 ML SDV INJ ONE (09:03)
[2018-09-17] MEDS ORDERED: MEPERIDINE HCL INJ 25 MG/ML VIAL ONE (13:30)
[2018-09-17] MEDS ORDERED: PIPER-TAZ 3.375 GM 50 ML IV SCH (14:00)
[2018-09-17] MEDS ORDERED: FENTANYL CITRATE/PF 100MCG/2 ML INJ ONE ×2 (15:22→17:53)
[2018-09-17] MEDS ORDERED: MIDAZOLAM HCL 2 MG/2 ML VIAL ONE (17:53)
[2018-09-17] MEDS ORDERED: PROPOFOL IV EMULSION 10 MG/ML 20 ML VIAL ONE (18:00)
[2018-09-17] MEDS ORDERED: ONDANSETRON HCL INJ 2MG/ML 2ML 2 MG/ML VIAL ONE (18:00)
[2018-09-17] MEDS ORDERED: DEXAMETHASONE SOD PHOS INJ 4 MG/ML VIAL ONE (18:00)
[2018-09-17] MEDS ORDERED: KETOROLAC TROMETHAMINE 30 MG/ML VIAL ONE (18:00)
[2018-09-17] MEDS ORDERED: GLYCOPYRROLATE INJ 1MG/ 5 ML SYR ONE (18:00)
[2018-09-17] MEDS ORDERED: SEVOFLURANE INHAL SOLN 250 ML PEN BTL ONE (18:00)
[2018-09-17] MEDS ORDERED: ROCURONIUM BROMIDE 10 MG/ML 5ML VIAL ONE (18:00)
[2018-09-17] MEDS ORDERED: NEOSTIGMINE 5 MG/5ML SYR ONE (18:00)
[2018-09-17] MEDS ORDERED: LIDOCAINE HCL 2% LOCAL INJ 5 ML SDV VIAL INJ ONE (18:00)
--- NOTE | 2018-09-17 18:32 | NUR ---
PRIMARY CARE PHYSICIAN: Dr. Osei. STRIP PRESSER: Dr. Rodney. CHIEF COMPLAINT: Sigmoid diverticulitis. HISTORY OF PRESENT ILLNESS: This is a 63-year-old woman with a history of diverticulosis, developed sigmoid diverticulitis, treated, had pancreatitis that resulted in readmission, now here for surgical mgmt of the sigmoid colon. Pt underwent resection of sigmoid colon, now recovering in PACU. PAST MEDICAL HISTORY: Sigmoid Diverticulitis, Acute pancreatitis, Diverticulosis, hypertension, objective jaundice, cholangitis, choledocholithiasis status post ERCP with common bile duct stent placement status post cholecystectomy, hypokalemia, acute transaminitis. PAST SURGICAL HISTORY: Tubal ligation, hernia repair, cholecystectomy, ERCP with common bile duct stent placement. ALLERGIES: PER THE ELECTRONIC MEDICAL RECORDS. FAMILY HISTORY/SOCIAL HISTORY: Patient is . She has 2 children. Occasional alcohol, no cigarettes or illicits. MEDICATIONS: Per the electronic medical records. Medications reviewed. REVIEW OF SYSTEMS: Denies any fever, chills, sweats. Denies any headache, chest pain, leg pain, skin rash, confusion. LABS: Reviewed. ASSESSMENT: This is a 63-year-old woman. 1. Recent Sigmoid diverticulitis s/p sigmoid resection 2.Hypertension. 3. Abdominal pain. 4.PEDRO LUIS 5. Overweight state, body mass index 26.9. PLAN 1. Pain mgmt; 2.Ambulate 3.PPI 4.SCD AM labs; Francois Rubio MD, PhD.
[2018-09-17] MEDS ORDERED: HYDROMORPHONE 2MG/ML 2 MG/ML ML ONE (19:19)
[2018-09-17 19:55] VITALS: BP 95/50
[2018-09-17 19:56] VITALS: BP 95/50
[2018-09-17 20:35] VITALS: BP 95/50
[2018-09-17] MEDS: ENOXAPARIN 30 MG/0.3 ML SYR SC SCH (22:33)
[2018-09-17] MEDS: ONDANSETRON HCL INJ 2MG/ML 2ML 2 MG/ML VIAL IV PRN (22:46)
[2018-09-17] MEDS: LACTATED RINGER'S 1,000 ML IV SCH (22:46)
[2018-09-17] MEDS: HYDROMORPHONE 2MG/ML 2 MG/ML ML IV PRN (22:46)
[2018-09-18] VITALS (7 sets, daily range): BP systolic 88–121; BP diastolic 50–58
--- NOTE | 2018-09-18 00:14 | Operative Report ---
DATE OF PROCEDURE: September 17, 2018 PREOPERATIVE DIAGNOSIS: Perforated diverticulitis. POSTOPERATIVE DIAGNOSIS: Perforated diverticulitis. OPERATIVE PROCEDURE: Laparoscopic assisted sigmoid resection with splenic flexure mobilization. CO-SURGEON: Dr. Tobin. ANESTHESIA: General endotracheal. INDICATIONS: A 63-year-old female with history of perforated diverticulitis in August which was treated with several weeks of antibiotics. The patient's pain has resolved. She then consented for elective sigmoid resection to prevent recurrence. Attendant risks discussed. PROCEDURE FINDINGS: Chronic inflammation in the distal sigmoid colon and upper rectum. DESCRIPTION OF PROCEDURE: The patient brought to the OR, intubated in supine position. She was then re-positioned to lithotomy. The peritoneal area was prepped with Betadine, the abdominal area prepped with ChloraPrep. A supraumbilical incision was made and a 5-mm port inserted. Insufflation then begun. Under direct vision, the other ports were placed in suprapubic and midepigastric region. We proceeded to view the pelvic area and chronic inflammation noted with adhesions within the omentum to the pelvic and lateral pelvic wall. We proceeded to mobilize the splenic flexure, starting midpoint of the descending colon along the paracolic, white line of Toldt, and worked toward the splenic flexure using the LigaSure instrument. Proximally, the mid transverse colon was also identified by lifting the omentum superiorly. The transverse colon was then mobilized from the omentum attachment towards the splenic flexure taking care to preserve the spleen. The splenic flexure and left colon were completely mobilized to allow the left colon to reach the pelvis for anastomosis later on. At this point, a Pfannenstiel incision was made for open conversion going through the previous abdominoplasty scar. The fascia was opened transversely, rectus muscle split in the middle entering the peritoneal cavity. The bowel was then relocated proximally manually. The sigmoid colon was then followed down to the pelvis where we encountered a very thickened rectosigmoid junction with loop of colon and rectum adherent to each other and to the pelvic organ. At this point, Dr. Tobin of [facility] was invited to consult and help with mobilization and lysis of adhesions of pelvic organs. The uterus and the left adnexal organs were identified, but the right one was not visible due to severe adhesions. Using blunt dissection, the rectosigmoid junction was from surrounding pelvic structure down to the grossly normal mid rectum. At this point, the proximal sigmoid colon was divided with a BERLIN stapler and the mesentery was controlled with the LigaSure instrument in the presacral area. Dissection was carried bluntly down to noninflamed tissue in the mid rectum. At this point, the mid rectum was then transected with a TA-60 green load and the rectosigmoid colon was removed from the operative field, irrigated, hemostasis achieved. We then performed an EEA anastomosis between the proximal sigmoid colon and the rectum by first placing a pursestring stitch of 2-0 Prolene around the proximal end of the sigmoid colon using the anvil of the EEA stapler. The instrument itself was inserted through the rectum and a stapled anastomosis was carried out without tension. Insufflation through the rectum showed no air leak. The anastomosis was further reinforced with interrupted 2-0 silk stitches circumferentially. Operative field was irrigated. The omentum was brought down to cover the anastomosis and the pelvis along with a 19-Prydeinig Juice drain placed in the pelvis and taken out through the stab wound in the left lower quadrant. Operative field was then irrigated with copious saline solution. Hemostasis achieved. We then closed the abdomen by approximating the peritoneum with running 2-0 Vicryl. Fascia closed with running 0 PDS. Skin was closed with reyes. Patient was extubated and transported to recovery room in guarded condition. Estimated blood loss: 200 mL. Job#: [id number]
[2018-09-18] MEDS: PIPER-TAZ 3.375 GM 50 ML IV SCH ×3 (04:38→20:00)
[2018-09-18] MEDS: LACTATED RINGER'S 1,000 ML IV SCH ×3 (04:45→20:45)
[2018-09-18 06:02] LABS: ANION GAP 13.2 mmol/L (8-16); CALCIUM 8.2 mg/dL (8.4-10.2); CREATININE, SERUM 0.97 mg/dL (0.57-1.11); POTASSIUM 4.2 mmol/L (3.5-5.1)
[2018-09-18] MEDS: HYDROMORPHONE 2MG/ML 2 MG/ML ML IV PRN ×3 (06:18→18:26)
[2018-09-18] MEDS: ONDANSETRON HCL INJ 2MG/ML 2ML 2 MG/ML VIAL IV PRN (06:18)
[2018-09-18 06:27] LABS: BASOPHILS % 0.2 % (0.0-1.0); EOSINOPHILS % 0.1 % (0.0-6.0); HEMATOCRIT 33.2 % (34.2-44.1); HEMOGLOBIN 10.8 g/dL (12.0-16.0); LYMPHOCYTES # (AUTO) 1.3 (1.0-3.2); MEAN CORPUSCULAR HEMOGLOBIN 29.3 pg (28-32); MEAN CORPUSCULAR HGB CONC 32.5 g/dL (31-35); MONOCYTES # (AUTO) 0.8 (0.2-0.8); MONOCYTES % 8.4 % (4.4-11.3); NEUTROPHILS # (AUTO) 7.6 (2.1-6.9); NEUTROPHILS % 77.8 % (38.7-80.0); PLATELET COUNT 189 x10e3/uL (140-360); RED BLOOD COUNT 3.69 x10e6/uL (3.6-5.1); RED CELL DISTRIBUTION WIDTH 15.7 % (11.7-14.4)
--- NOTE | 2018-09-18 06:37 | NUR ---
Addendum to H&P: V/S rev'd PE tired appearing anicteric ns1s2 mod bs lower abdomen dressing with drain ext no edema skin dry flat affect Francois Rubio MD, PhD.
--- NOTE | 2018-09-18 06:38 | NUR ---
IM- Progress Note O/N: no events REVIEW OF SYSTEMS: Denies any fever, chills, sweats. Denies any headache, chest pain, leg pain, skin rash, confusion. V/S rev'd PE tired appearing anicteric ns1s2 mod bs soft; lower abdomen dressing with JASMYN drain ext no e/t skin dry a&oX3; andrade flat affect LABS: Reviewed. ASSESSMENT: This is a 63-year-old woman. 1. Recent Sigmoid diverticulitis s/p sigmoid resection 2.Hypertension. 3. Abdominal pain. 4.PEDRO LUIS 5. Overweight state, body mass index 26.9. PLAN 1. Pain mgmt; 2.Ambulate 3.PPI 4.SCD AM labs; f/u labs; Francois Rubio MD, PhD.
--- NOTE | 2018-09-18 06:50 | NUR ---
rounded with mercerizer machine operator nurse, patient resting in bed. Patient in no distress, aware of change. Bed in lowest position and call crawford within reach
--- NOTE | 2018-09-18 07:22 | NUR ---
report given to oncoming nurse and walking rounds complete.
[2018-09-18] MEDS: LOSARTAN POTASSIUM 100 MG TAB PO SCH (09:00)
[2018-09-18] MEDS: NEBIVOLOL 10 MG TAB PO SCH (09:00)
[2018-09-18] MEDS: PANTOPRAZOLE SOD 40 MG TABEC PO SCH (09:10)
--- NOTE | 2018-09-18 12:51 | NUR ---
report given to Shea for patient transfer, patient aware of change and in stable condition.
--- NOTE | 2018-09-18 12:52 | NUR ---
CONSTRUCTION SUPERVISOR INITIAL ASSESSMENT Tool Drawing Checker to bedside to discuss plan of care with patient/family. CM/SW role and care transitions discussed. Anticipated discharge plan discussed along with duration of care. CM/SW discussed patients right to make decisions in care. CM/SW work hours given. Patient lives: in a house in [place] with her Admit/Transfer: ED POA/Emergency contact: : Dane [phone] Current/Previous Home Health: none PCP/Follow-up Care: Dr. Mu Osei Current/Previous DME: none Other Services: none Employment Status: works at [employer] Areas of Concerns: none Referral Needs: none Education Needs: none IMM/NAPIER given and signed (if applicable): n/a Goal for discharge: to return home and back to work Patient states she was recently admitted to [facility] Aug 15-2017. Adrian was started on new BP medication which she understands. She states she has followed up with her PCP. CM/SW left business card at the bedside with contact information. Name and number was also written on the patients whiteboard. Patient verbalized understanding of discussion. CM will follow-up with ongoing discharge and transition of care needs.
--- NOTE | 2018-09-18 13:20 | NUR ---
Visit made by the Spiritual Care Department Pastoral Visitor, Mickie Zayas. Pt sleeping soundly and no family present. Pastoral Visitor left a card describing availability of bed laborer and instructions on how to contact a bed laborer. MARY DUPREE Community Placement Worker Spiritual Care Department O: [phone] Pager: [phone] ([phone] number calling from)
[2018-09-18] MEDS ORDERED: ACETAMINOPHEN 325 MG TAB PO PRN (13:30)
--- NOTE | 2018-09-18 15:17 | NUR ---
Nutrition Screen Note RD Recommendation for Physician: - ADAT to goal to GI Soft Plan of Care: RD following, monitoring for tolerance and adequacy Nutrition reason for involvement: Nutrition Risk Trigger- MST Primary Diagnose(s): Diverticulitis PMH: HTN, diverticulosis, abdominal pain, HTN, PEDRO LUIS Ht: 63 in Wt: 152 lb BMI: 26.9 kg/m2 IBW: [address] Assessment: (09/18/18) 63 YOF admitted for diverticulitis requiring sigmoid colon resection. Pt advanced to CL diet post-operatively this am. 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 Pt reports UBW of 160# and states she lost "a few pounds when I was hospitalized in August", noted 5% wt loss in 1 month. Pt denies any N/V/C/D. Pt declined all supplements offered, states that all Ensure product are "too sweet". Food and flavor preferences noted in [facility]. Chart reviewed. Labs and meds reviewed. Current Diet: Clear Liquids Malnutrition Evaluation 09/18/18 The patient does not meet criteria for a specified degree of malnutrition at this time. Will re-evaluate at follow-up as appropriate. 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 Nutrition Care Level: Low Signed: Savannah Alvarez RD, LD, [facility]
[2018-09-18] MEDS: ENOXAPARIN 30 MG/0.3 ML SYR SC SCH (16:45)
--- NOTE | 2018-09-18 16:45 | NUR ---
Removed byrnes at this time, 10cc of saline removed. Patient tolerated well.
--- NOTE | 2018-09-18 19:05 | NUR ---
report given to film processing shift supervisor nurse, patient aware of change. Bed in lowest position and call crawford within reach.
[2018-09-19] VITALS: BP 115/59
[2018-09-19 04:00] VITALS: BP 110/52
[2018-09-19] MEDS: PIPER-TAZ 3.375 GM 50 ML IV SCH ×3 (04:00→21:22)
[2018-09-19] MEDS: LACTATED RINGER'S 1,000 ML IV SCH ×2 (04:45→16:30)
[2018-09-19 05:41] LABS: BASOPHILS % 0.2 % (0.0-1.0); EOSINOPHILS # (AUTO) 0.1 (0.0-0.4); EOSINOPHILS % 1.2 % (0.0-6.0); HEMATOCRIT 28.7 % (34.2-44.1); HEMOGLOBIN 9.4 g/dL (12.0-16.0); LYMPHOCYTES % 12.3 % (18.0-39.1); MEAN CORPUSCULAR HEMOGLOBIN 29.6 pg (28-32); MEAN CORPUSCULAR HGB CONC 32.8 g/dL (31-35); MEAN CORPUSCULAR VOLUME 90.3 fL (81-99); MONOCYTES # (AUTO) 0.6 (0.2-0.8); MONOCYTES % 7.2 % (4.4-11.3); NEUTROPHILS # (AUTO) 6.6 (2.1-6.9); NEUTROPHILS % 78.4 % (38.7-80.0); PLATELET COUNT 143 x10e3/uL (140-360); RED BLOOD COUNT 3.18 x10e6/uL (3.6-5.1); RED CELL DISTRIBUTION WIDTH 15.4 % (11.7-14.4)
[2018-09-19 06:04] LABS: ANION GAP 11.7 mmol/L (8-16); BLOOD UREA NITROGEN 7 mg/dL (7-26); BUN/CREATININE RATIO 10 (6-25); CALCIUM 8.1 mg/dL (8.4-10.2); CARBON DIOXIDE 25 mmol/L (22-29); CHLORIDE 104 mmol/L (98-107); CREATININE, SERUM 0.67 mg/dL (0.57-1.11); EST GLOMERULAR FILTRATION RATE > 60 ML/MIN (60-); GLUCOSE 101 mg/dL (74-118); POTASSIUM 3.7 mmol/L (3.5-5.1); SODIUM 137 mmol/L (136-145)
--- NOTE | 2018-09-19 06:18 | NUR ---
IM- Progress Note O/N: had BM REVIEW OF SYSTEMS: Denies any fever, chills, sweats. Denies any headache, chest pain, leg pain, skin rash, confusion. V/S rev'd PE tired appearing anicteric ns1s2 mod bs soft; lower abdomen dressing with JASMYN drain ext no e/t skin dry a&oX3; andrade flat affect LABS: Reviewed. ASSESSMENT: This is a 63-year-old woman. 1. Recent Sigmoid diverticulitis s/p sigmoid resection 2.Hypertension. 3. Abdominal pain. 4.PEDRO LUIS 5. Overweight state, body mass index 26.9. PLAN 1. Pain mgmt; 2.Ambulate 3.PPI 4.SCD AM labs; f/u labs; 2/6 add bowel regimen. Had BM. pain controlled; Francois Rubio MD, PhD.
[2018-09-19 07:37] VITALS: BP 109/60
[2018-09-19] MEDS: PANTOPRAZOLE SOD 40 MG TABEC PO SCH (08:19)
[2018-09-19] MEDS: NEBIVOLOL 10 MG TAB PO SCH (08:20)
[2018-09-19] MEDS: DOCUSATE SODIUM 100 MG CAP PO SCH ×2 (08:21→21:22)
[2018-09-19] MEDS: LOSARTAN POTASSIUM 100 MG TAB PO SCH (08:21)
[2018-09-19] MEDS: SENNOSIDES 8.6 MG TAB PO SCH ×2 (08:21→21:22)
[2018-09-19 11:18] VITALS: BP 147/65
[2018-09-19] MEDS: ONDANSETRON HCL INJ 2MG/ML 2ML 2 MG/ML VIAL IV PRN ×2 (11:36→18:52)
[2018-09-19] MEDS: HYDROMORPHONE 2MG/ML 2 MG/ML ML IV PRN ×2 (11:37→18:51)
[2018-09-19 15:51] VITALS: BP 119/58
[2018-09-19] MEDS: ENOXAPARIN 30 MG/0.3 ML SYR SC SCH (16:30)
--- NOTE | 2018-09-19 20:11 | NUR ---
Received report from OBS nurse.
--- NOTE | 2018-09-19 21:40 | NUR ---
Patient arrived to floor via w/c.
[2018-09-19 22:06] VITALS: BP 125/60
--- NOTE | 2018-09-19 23:55 | NUR ---
Report given to demian Pride and patient transported to ms1. Addendum: 09/19/18 at 3636 by Kenyon Tyler RN Time: [id number]
[2018-09-20] VITALS (7 sets, daily range): BP systolic 112–160; BP diastolic 56–68
[2018-09-20] MEDS: ONDANSETRON HCL INJ 2MG/ML 2ML 2 MG/ML VIAL IV PRN (01:00)
[2018-09-20] MEDS: HYDROMORPHONE 2MG/ML 2 MG/ML ML IV PRN ×2 (01:00→11:15)
--- NOTE | 2018-09-20 01:44 | NUR ---
Patient c/o pain = 7. Given pain meds as ordered by MD. Also given nausea med. Asst patient to reposition in bed. JASMYN with 50cc rodriguez colored fluids. at bedside. Patient AAO x3. IV intact to right AC with LR at 42cc/hr. Dressing to abdomin dry and intact.
[2018-09-20] MEDS: PIPER-TAZ 3.375 GM 50 ML IV SCH ×3 (03:29→20:00)
--- NOTE | 2018-09-20 08:38 | NUR ---
IM- Progress Note O/N: had BM REVIEW OF SYSTEMS: Denies any fever, chills, sweats. Denies any headache, chest pain, leg pain, skin rash, confusion. V/S rev'd PE tired appearing anicteric ns1s2 mod bs soft; lower abdomen dressing with JASMYN drain ext no e/t skin dry a&oX3; andrade flat affect LABS: Reviewed. ASSESSMENT: This is a 63-year-old woman. 1. Recent Sigmoid diverticulitis s/p sigmoid resection 2.Hypertension. 3. Abdominal pain. 4.PEDRO LUIS 5. Overweight state, body mass index 26.9. PLAN 1. Pain mgmt; 2.Ambulate 3.PPI 4.SCD AM labs; f/u labs; 2/6 add bowel regimen. Had BM. pain controlled; 2/7 continue tx. Francois Rubio MD, PhD.
[2018-09-20] MEDS: NEBIVOLOL 10 MG TAB PO SCH (09:05)
[2018-09-20] MEDS: HYDROCODONE/APAP 7.5MG-325MG 1 EA TAB PO PRN ×3 (09:05→18:30)
[2018-09-20] MEDS: PANTOPRAZOLE SOD 40 MG TABEC PO SCH (09:05)
[2018-09-20] MEDS: DOCUSATE SODIUM 100 MG CAP PO SCH ×2 (09:05→20:21)
[2018-09-20] MEDS: SENNOSIDES 8.6 MG TAB PO SCH ×2 (09:05→20:21)
[2018-09-20] MEDS: LOSARTAN POTASSIUM 100 MG TAB PO SCH (09:05)
[2018-09-20] MEDS: LACTATED RINGER'S 1,000 ML IV SCH (11:16)
[2018-09-20] MEDS: ENOXAPARIN 30 MG/0.3 ML SYR SC SCH (18:47)
--- NOTE | 2018-09-20 19:15 | NUR ---
Walking rounds done. No s/s of acute distress noted.
--- NOTE | 2018-09-20 19:49 | NUR ---
Received change of shift report from Am nurse. Walking rounds completed.
[2018-09-21] VITALS: BP 138/62
[2018-09-21 04:00] VITALS: BP 136/69
[2018-09-21] MEDS: PIPER-TAZ 3.375 GM 50 ML IV SCH (04:00)
--- NOTE | 2018-09-21 06:07 | NUR ---
IM- Progress Note O/N: had BM REVIEW OF SYSTEMS: Denies any fever, chills, sweats. Denies any headache, chest pain, leg pain, skin rash, confusion. V/S rev'd PE tired appearing anicteric ns1s2 mod bs soft; lower abdomen dressing with JASMYN drain ext no e/t skin dry a&oX3; andrade flat affect LABS: Reviewed. ASSESSMENT: This is a 63-year-old woman. 1. Recent Sigmoid diverticulitis s/p sigmoid resection 2.Hypertension. 3. Abdominal pain. 4.PEDRO LUIS 5. Overweight state, body mass index 26.9. PLAN 1. Pain mgmt; 2.Ambulate 3.PPI 4.SCD AM labs; f/u labs; 2/6 add bowel regimen. Had BM. pain controlled; 2/7 continue tx. 2/8 output from JASMYN in last shift 25cc. had BM; cont advancing diet; doing well; d/c planning Francois Rubio MD, PhD.
[2018-09-21] MEDS ORDERED: FLAGYL500 MG PO (06:43)
[2018-09-21] MEDS ORDERED: CIPRO500 MG PO (06:43)
[2018-09-21] MEDS ORDERED: COLACE100 MG PO (06:43)
[2018-09-21] MEDS ORDERED: MIRALAX17 GM PO (06:43)
[2018-09-21] MEDS ORDERED: SENOKOT8.6 MG PO (06:43)
[2018-09-21 07:22] LABS: BASOPHILS % 0.4 % (0.0-1.0); EOSINOPHILS # (AUTO) 0.2 (0.0-0.4); EOSINOPHILS % 3.9 % (0.0-6.0); HEMATOCRIT 30.1 % (34.2-44.1); HEMOGLOBIN 10.2 g/dL (12.0-16.0); LYMPHOCYTES # (AUTO) 0.9 (1.0-3.2); LYMPHOCYTES % 18.1 % (18.0-39.1); MEAN CORPUSCULAR HEMOGLOBIN 30.1 pg (28-32); MEAN CORPUSCULAR HGB CONC 33.9 g/dL (31-35); MEAN CORPUSCULAR VOLUME 88.8 fL (81-99); MONOCYTES # (AUTO) 0.4 (0.2-0.8); MONOCYTES % 8.5 % (4.4-11.3); NEUTROPHILS # (AUTO) 3.6 (2.1-6.9); NEUTROPHILS % 68.3 % (38.7-80.0); PLATELET COUNT 205 x10e3/uL (140-360); RED BLOOD COUNT 3.39 x10e6/uL (3.6-5.1); RED CELL DISTRIBUTION WIDTH 14.6 % (11.7-14.4)
[2018-09-21 07:35] LABS: ANION GAP 12.4 mmol/L (8-16); BLOOD UREA NITROGEN < 5 mg/dL (7-26); BUN/CREATININE RATIO 8 (6-25); CALCIUM 8.5 mg/dL (8.4-10.2); CARBON DIOXIDE 27 mmol/L (22-29); CHLORIDE 102 mmol/L (98-107); CREATININE, SERUM 0.65 mg/dL (0.57-1.11); EST GLOMERULAR FILTRATION RATE > 60 ML/MIN (60-); GLUCOSE 98 mg/dL (74-118); POTASSIUM 3.4 mmol/L (3.5-5.1); SODIUM 138 mmol/L (136-145)
[2018-09-21] MEDS: PANTOPRAZOLE SOD 40 MG TABEC PO SCH (08:00)
[2018-09-21 08:06] VITALS: BP 141/64
--- NOTE | 2018-09-21 09:20 | NUR ---
JASMYN drain removed per Dr. Rdz's order; new dressing applied. Pt tolerated well.
[2018-09-21] MEDS: DOCUSATE SODIUM 100 MG CAP PO SCH (09:21)
[2018-09-21] MEDS: LOSARTAN POTASSIUM 100 MG TAB PO SCH (09:21)
[2018-09-21] MEDS: SENNOSIDES 8.6 MG TAB PO SCH (09:21)
[2018-09-21] MEDS: NEBIVOLOL 10 MG TAB PO SCH (09:21)
[2018-09-21 11:36] VITALS: BP 152/72
[2018-09-21] MEDS: HYDROCODONE/APAP 7.5MG-325MG 1 EA TAB PO PRN (12:43)
--- NOTE | 2018-09-21 14:26 | NUR ---
abdomen continues to be soft to palpation without distension; dressings are c/d/i. Discharge instructions given to the patient. Discharge Rx's given to patient, educated patient on purpose and side effects and encouraged compliance. Pt verbalized understanding. IV removed with tip intact, dressing applied. All personal belongings gathered and packed. Pt escorted to personal vehicle via wheelchair in stable condition with all personal belongings.
== END 2018-09-21 14:43 | disposition home or self-care (01) | DRG 331 ==
LOC: OR 07:14 → INTOOBSV 13:37 → PACU V 13:37 → OBSVTOIN 13:37 → IMCU 18:39 → MED/SURG 09-19 21:42
PROVIDERS: ADMIT Internal Medicine; ATTEND Internal Medicine
PROC: 0DNL0ZZ Release Transverse Colon, Open Approach (ICD-10-PCS; 2018-09-17)
PROC: 0DTN0ZZ Resection of Sigmoid Colon, Open Approach (ICD-10-PCS; principal; 2018-09-17 09:00)
DX: K57.20 Diverticulitis of large intestine with perforation and abscess without bleeding (principal); K21.9 Gastro-esophageal reflux disease without esophagitis; I10 Essential (primary) hypertension
CPT/HCPCS: 36415; 80048; 85025; 86850; 86900; 88307; 93005; 96361; J0694; J1100; J1650; J1885; J2001; J2175; J2250; J2405; J2543; J7121

== ENCOUNTER → 2019-11-07 | Day surgery (SDC) | payer MEDICARE ==
[2019-11-05 08:33] LABS: BASOPHILS % 0.8 % (0.0-1.0); EOSINOPHILS # (AUTO) 0.1 (0.0-0.4); EOSINOPHILS % 1.9 % (0.0-6.0); HEMATOCRIT 43.8 % (34.2-44.1); HEMOGLOBIN 14.5 g/dL (12.0-16.0); LYMPHOCYTES # (AUTO) 1.4 (1.0-3.2); LYMPHOCYTES % 27.7 % (18.0-39.1); MEAN CORPUSCULAR HEMOGLOBIN 30.3 pg (28-32); MEAN CORPUSCULAR HGB CONC 33.1 g/dL (31-35); MEAN CORPUSCULAR VOLUME 91.4 fL (81-99); MONOCYTES # (AUTO) 0.6 (0.2-0.8); MONOCYTES % 11.8 % (4.4-11.3); NEUTROPHILS % 57.6 % (38.7-80.0); PLATELET COUNT 252 x10e3/uL (140-360); RED BLOOD COUNT 4.79 x10e6/uL (3.6-5.1); RED CELL DISTRIBUTION WIDTH 12.7 % (11.7-14.4)
[~2019-11-07] MED LIST changes: +ATENOLOL50 MG PO; +CELEBREX100 MG PO; +COLACE100 MG PO; +DEXMEDETOMIDINE HCL 2 ML ONE; +FENTANYL CITRATE/PF 100MCG/2 ML INJ ONE; +GLUCAGON FOR INJ 1 MG VIAL ONE; +HYOSCYAMINE 0.125 MG TAB ONE; +LIDOCAINE HCL 2% LOCAL INJ 5 ML SDV VIAL INJ ONE; +MIDAZOLAM HCL 2 MG/2 ML VIAL ONE; +PROPOFOL IV EMULSION 10 MG/ML 50 ML VIAL ONE; +SENOKOT8.6 MG PO; +SODIUM CHLORIDE 0.9% 50ML 50 ML ONE; +TRIAMTERENE-HCTZ1 EA PO
--- NOTE | 2019-11-07 07:15 | NUR ---
SPIRITUAL CARE - Pre-Surgery Assessment: Pt in bed. Pt's at bedside. Pt reported supportive attention from family and friends. Intervention: I provided pastoral presence, hospitality, and sympathetic listening. I acquainted pt with availability of manager [facility] while hospitalized. Outcome: Pt expressed appreciation for visit. No need for follow up indicated at this time. [facility] Department O: [phone]
[2019-11-07 09:20] VITALS: BP 110/44
--- NOTE | 2019-11-07 10:09 | Operative Report ---
DATE OF PROCEDURE: 11/07/2019 SURGEON: Helder Rodney MD PROCEDURES: 1. Esophagogastroduodenoscopy with biopsies. 2. Colonoscopy with polypectomy and biopsies. INDICATION FOR EGD: Dyspepsia. INDICATIONS FOR COLONOSCOPY: Colorectal cancer screening, father with colon cancer, personal history of colon polyps. MEDICATIONS: The patient was done under MAC, please see anesthesiologist's note. PROCEDURE IN DETAIL: With the patient in left lateral decubitus position, a flexible fiberoptic Olympus gastroscope was introduced into the esophagus under direct visualization without any difficulty. Minute tongues of velvety red mucosa were noted to extend proximally from the GE junction and biopsies were obtained to rule out Renae's. The scope was then advanced with ease into the stomach traversing a small sliding hiatal hernia. Mucosa overlying the antrum and the body revealed some patchy erythema and [id number] edema, and biopsies were obtained, sent to stain for H pylori. Approximately 5 mm submucosal nodule was noted in mid body, lesser curvature and that was biopsied. Pylorus was traversed with ease and the scope was advanced all the way to the second portion of the duodenum. Biopsies were obtained from the proximal second portion and duodenal bulb to rule out sprue. The scope was then withdrawn back into the stomach and retroflexed, mucosa overlying the fundus and the cardia appeared to be within normal limits. The scope was then straightened out, it was subsequently withdrawn. The patient tolerated the procedure well. IMPRESSION: 1. Rule out Renae's esophagus. 2. Small sliding hiatal hernia. 3. Gastritis, biopsied, biopsies sent to stain for Helicobacter pylori. 4. Approximately 5 mm submucosal nodule, mid body, lesser curvature, biopsied. 5. Rule out sprue. PLAN: Follow up histology. Initiate Protonix 40 mg one p.o. q.a.m. a.c. The patient was then turned around. After adequate lubrication of the anal canal, a flexible fiberoptic Olympus colonoscope was inserted into the rectum with ease and advanced all the way to the cecum. The patient had diverticular disease throughout the colon. A minute polyp was noted in the cecum that was removed per the cold biopsy forceps. A 5 mm polyp was noted in the proximal ascending colon that was removed per cold snare polypectomy. The rest of the ascending, transverse and descending as well as the sigmoid other than for diverticular disease appeared to be within normal limits. Anastomosis was noted at 8 cm from the anal verge that was patent. There was a friable nodule at the anastomosis that was biopsied. The scope was then retroflexed into the distal rectum and small internal hemorrhoids were noted, none of which was actively bleeding. The scope was then straightened out, it was subsequently withdrawn. The patient tolerated the procedure well. IMPRESSION: 1. Pandiverticulosis. 2. Cecal polyp removed per cold biopsy forceps. 3. Ascending colon polyp approximately 5 mm, sessile, removed per cold snare polypectomy. 4. Friable nodule anastomosis approximately 8 cm from the anal verge, biopsied. 5. Internal hemorrhoids, none actively bleeding. PLAN: Follow up histology. Initiate high-fiber, low-fat diet. Initiate high-fiber supplement. The patient might benefit from a followup colonoscopy in 3 years. MD CLEO Albert/LOLA /[id number] cc: Mu Osei
== END | disposition home or self-care (01) ==
LOC: ENDO 06:00
PROVIDERS: ATTEND Internal Medicine Gastroenterology
DX: Z12.11 Encounter for screening for malignant neoplasm of colon (principal); D12.0 Benign neoplasm of cecum; K29.70 Gastritis, unspecified, without bleeding; K22.70 Barrett's esophagus without dysplasia; K21.0 Gastro-esophageal reflux disease with esophagitis; Z98.0 Intestinal bypass and anastomosis status; K44.9 Diaphragmatic hernia without obstruction or gangrene; K31.89 Other diseases of stomach and duodenum; K28.9 Gastrojejunal ulcer, unspecified as acute or chronic, without hemorrhage or perforation; K57.30 Diverticulosis of large intestine without perforation or abscess without bleeding; K64.8 Other hemorrhoids; K63.89 Other specified diseases of intestine; K85.90 Acute pancreatitis without necrosis or infection, unspecified; I10 Essential (primary) hypertension; E66.9 Obesity, unspecified; Z88.6 Allergy status to analgesic agent; Z91.041 Radiographic dye allergy status; Z01.810 Encounter for preprocedural cardiovascular examination; Z79.82 Long term (current) use of aspirin; Z80.0 Family history of malignant neoplasm of digestive organs
CPT/HCPCS: 36415; 43239; 45380; 45385; 85025; 88305; 88312; 93005; J1610; J2001; J2250; J2704; J3010; 45378; 45384